=== PATIENT | female | born 1955 | race Caucasian/White ===

== ENCOUNTER 2016-12-13 08:18 | Inpatient (IN) | payer OTHER ==
[2016-11-06 10:18] VITALS: BMI 31.0
[2016-11-06 10:34] VITALS: BMI 31.0
--- NOTE | 2016-11-06 11:00 | PAT Medication Instructions ---
Service Date Nov 06, 2016. Current Home Medication List Albuterol (Ventolin Hfa), 2 INHA INH QID PRN for WHEEZING Aspirin (Aspirin Ec), 162 MG PO QAM Clopidogrel (Plavix), 75 MG PO QPM Docusate Sodium (Docusate Sodium), 1 CAP PO PRN Esomeprazole Magnesium (Nexium), 20 MG PO QAM Estradiol Vaginal (Vagifem), 1 SUPP PV 2XWK Ezetimibe (Zetia), 10 MG PO QPM Fluticasone Propionate (Flovent Hfa), 2 PUFFS INH BID Gabapentin (Neurontin), 300 MG PO HS Ibuprofen Tab (Motrin), 1 TAB PO TID PRN for PRN Levothyroxine Sodium (Synthroid), 1 TAB PO QAM Metoprolol Tartrate (Lopressor) (Lopressor), 25 MG PO BID Nitroglycerin (Nitrostat), 0.4 MG UT PRN Rosuvastatin Calcium (Crestor), 1 TAB PO QPM Tramadol (Ultram), 1 TAB PO Q6 PRN for PRN for pain. Medication Instructions For Your Scheduled Surgery - Check with surgeon/gis professor for instructions: Aspirin (Aspirin Ec), 162 MG PO QAM Clopidogrel (Plavix), 75 MG PO QPM - Check with surgeon for instructions: Ibuprofen Tab (Motrin), 1 TAB PO TID PRN for PRN - Hold the following medications 2 weeks prior to surgery: Estradiol Vaginal (Vagifem), 1 SUPP PV 2XWK (patient will hold week of surgery per PCP) - Hold the following medications the morning of surgery: Docusate Sodium (Docusate Sodium), 1 CAP PO PRN - Take the following medications the morning of surgery with a sip of water: Nitroglycerin (Nitrostat), 0.4 MG UT PRN Metoprolol Tartrate (Lopressor) (Lopressor), 25 MG PO BID Levothyroxine Sodium (Synthroid), 1 TAB PO QAM Fluticasone Propionate (Flovent Hfa), 2 PUFFS INH BID Esomeprazole Magnesium (Nexium), 20 MG PO QAM Albuterol (Ventolin Hfa), 2 INHA INH QID PRN for WHEEZING Tramadol (Ultram), 1 TAB PO Q6 PRN for PRN for pain. (okay to take up to 4 hours prior to surgery if needed) - Take the following medications as scheduled the night before surgery: Rosuvastatin Calcium (Crestor), 1 TAB PO QPM Nitroglycerin (Nitrostat), 0.4 MG UT PRN Metoprolol Tartrate (Lopressor) (Lopressor), 25 MG PO BID Gabapentin (Neurontin), 300 MG PO HS Fluticasone Propionate (Flovent Hfa), 2 PUFFS INH BID Ezetimibe (Zetia), 10 MG PO QPM Docusate Sodium (Docusate Sodium), 1 CAP PO PRN Albuterol (Ventolin Hfa), 2 INHA INH QID PRN for WHEEZING Tramadol (Ultram), 1 TAB PO Q6 PRN for PRN for pain. If you have any questions please call us at [phone] (Sara Joseph PA-C) or [phone] or [phone]
[2016-11-06 11:25] LABS: BASO % 1.2 %; BASO ABS # 0.07 K/uL (0-0.2); COMPLETE YES; EOS % 7.9 %; HEMATOCRIT 39.4 % (37-47); IG% 0.3 %; LYMPH % 32.5 %; LYMPH ABS # 1.89 K/uL (1.2-3.4); MEAN CELL VOLUME 90.4 fL (80-100); MEAN CORPUSCULAR HEMOGLOBIN 29.4 pg (25-34); MEAN CORPUSCULAR HGB CONC 32.5 g/dl (32-36); MONO % 9.1 %; PLATELET COUNT 266 K/uL (130-400); RED BLOOD COUNT 4.36 M/uL (4.2-5.4); WHITE BLOOD COUNT 5.81 K/uL (4.8-10.8)
[2016-11-06 11:28] LABS: URINE APPEARANCE CLEAR (CLEAR); URINE BILIRUBIN NEG (NEG); URINE COLOR YELLOW; URINE EPITHELIAL CELL AUTO 0-5 /lpf (0-5); URINE NITRITE NEG (NEG); URINE PH 6.5 (4.5-7.5); URINE SPECIFIC GRAVITY 1.002 (1.000-1.030); UROBILINOGEN NEG (NEG)
--- NOTE | 2016-11-06 11:29 | DIAGNOSTIC IMAGING REPORT ---
CHEST PREADMISSION(PA/LAT) CLINICAL HISTORY: PAT preoperative evaluation COMPARISON STUDY: No previous studies for comparison. FINDINGS: The bones soft tissues and hemidiaphragms are normal. The cardiomediastinal silhouette is normal. The lungs are clear. The pulmonary vasculature is normal. Prior median sternotomy. IMPRESSION: Negative chest. Electronically signed by: Danny Tellez M.D. 11/06/2016 11:28 AM Dictated Date/Time: 11/06/2016 11:28 AM
[2016-11-06 11:32] LABS: MANUAL MICROSCOPIC REQUIRED? NO; REVIEW REQ? NO
[2016-11-06 11:43] LABS: BUN/CREATININE RATIO 17.4 (10-20); CALCIUM 8.9 mg/dl (8.5-10.1); POTASSIUM 5.2 mmol/L (3.5-5.1)
[~2016-12-13] VITALS: Ht 157.5 cm; Wt 77.8 kg
[2016-12-13] VITALS (8 sets, daily range): BP systolic 95–118; BP diastolic 60–80; PULSE 62–97; TEMP 34.6–36.6; O2SAT 98–100; Ht 157.5 cm; Wt 77.8 kg
[~2016-12-13 08:18] MED LIST: ALBUAER2 INH; ASPI81TA28 PO; CEFAZOLIN 2000 MG/60 ML D5W IV SCH; CELEBREX-ALLERGY NOTED TO ORDERED MEDICATION SCH; CLOP1TAB15 PO; CeleBREX 200 MG CAP PO SCH; DOCU100C31 PO; ESOM20CA PO; ESTR10TA PV; EZET10TA63 PO; FENTANYL CITRATE INJ 50 MCG/1 ML 2 ML VIAL ONE; FLVHFA44 INH; GABA-113 PO; IBUP-1427 PO; LACTATED RINGER'S 1000ML 1,000 ML IV SCH; LEVO75TA PO; LIDOCAINE HCL 2% 2 ML VIAL (20MG/ML) ONE; METO25TA56 PO; MIDAZOLAM HCL 1 MG/ML 2ML VIAL ONE; NITR0.4S UT; PREGABALIN 75 MG CAP PO SCH; PROPOFOL IV EMULSION 10 MG/ML 20 ML VIAL IV ONE; ROSU40TA PO; TRAM-10 PO
[2016-12-13] MEDS ORDERED: LACTATED RINGER'S 1000ML 1,000 ML IV PRN (10:58)
[2016-12-13] MEDS ORDERED: FENTANYL CITRATE INJ 50 MCG/1 ML 2 ML VIAL IV PRN (11:00)
[2016-12-13] MEDS ORDERED: ONDANSETRON INJ 2 MG/ML 2 ML VIAL IV PRN ×2 (11:00→13:45)
[2016-12-13] MEDS ORDERED: HYDROmorphone INJ 1 MG/ML SYR IV PRN (11:00)
[2016-12-13] MEDS ORDERED: HEPARIN SOD (PORCINE) 1000 UNIT/ML 10 ML VIAL ONE (11:28)
[2016-12-13] MEDS ORDERED: BUPIVACAINE/EPINEPHRINE 0.5% MPF 1:200,000 30 ML VIAL ONE (11:28)
[2016-12-13] MEDS ORDERED: BACITRACIN 50000 UNIT VIAL ONE (11:28)
[2016-12-13] MEDS ORDERED: THROMBIN 5000 UNITS KIT ONE (11:28)
[2016-12-13] MEDS ORDERED: THROMBIN FOR SOLN 20000 UNIT KIT ONE (11:28)
[2016-12-13] MEDS ORDERED: MIDAZOLAM HCL 1 MG/ML 2ML VIAL ONE (11:29)
[2016-12-13] MEDS ORDERED: FENTANYL CITRATE INJ 50 MCG/1 ML 2 ML VIAL ONE ×2 (11:29→12:14)
--- NOTE | 2016-12-13 11:41 | History and Physical ---
History & Physical Date Dec 13, 2016. Chief Complaint LBP and bilateral leg pain History of Present Illness The patient is a 61 year old female with complaints of above who has had chronic symptoms that have failed to improve with outpatient treatment including ESIs and PT. She was referred by Dr. Camara for surgical consideration due to progression of symptoms and limited quality of life. She has subjective numbness and tingling in BLEs. no elana weakness or incontinence. Her MRI shows spinal stenosis L3-S1 with xray findings of a lumbarized S1 and L5-S1 degen spondy gr I. She has a hx of CAD s/p CABG in 2014. cleared by cards to hold plavix and proceed. Past Medical/Surgical History CAD CABG 07/24 HTN asthma smoker GERD hyperlipidemia hypothyroidism lumbar DDD ACDF LBBB hysterectomy CTS paroxysmal ventricular tachycardia Additional History Hepatic Disease: No Endocrine Disorder: Yes Kidney Disease: No Hypertension: Yes Heart Disease: Yes Bleeding Tendencies: No Infectious Diseases: No Allergies Coded Allergies: Adhesives (Verified Allergy, Mild, HIVES, 12/13/16) Rofecoxib (Verified Allergy, Mild, RASH,NAUSEA AND VOMITING,CHEST PAIN, 12/13/16) Home Medications Scheduled Aspirin (Aspirin Ec), 162 MG PO QAM Clopidogrel (Plavix), 75 MG PO QPM Esomeprazole Magnesium (Nexium), 20 MG PO QAM Estradiol Vaginal (Vagifem), 1 SUPP PV 2XWK Ezetimibe (Zetia), 10 MG PO QPM Fluticasone Propionate (Flovent Hfa), 2 PUFFS INH BID Gabapentin (Neurontin), 300 MG PO HS Levothyroxine Sodium (Synthroid), 1 TAB PO QAM Metoprolol Tartrate (Lopressor) (Lopressor), 25 MG PO BID Nitroglycerin (Nitrostat), 0.4 MG UT PRN Rosuvastatin Calcium (Crestor), 1 TAB PO QPM Scheduled PRN Albuterol (Ventolin Hfa), 2 INHA INH QID PRN for WHEEZING Ibuprofen Tab (Motrin), 1 TAB PO TID PRN for PRN Tramadol (Ultram), 1 TAB PO Q6 PRN for PRN for pain. Physical Examination Skin: warm/dry Eyes: normal inspection ENT: normal ENT inspection Head: normocephalic, atraumatic Neck: supple Respiratory/Chest: lungs clear, no respiratory distress Cardiovascular: regular rate, rhythm Back: normal inspection Extremities: normal inspection, normal range of motion Neurologic/Psych: no motor/sensory deficits, alert, normal reflexes, oriented x 3 Diagnosis L3-S1 stenosis/degen spondy/DDD Plan of Treatment L3-S1 decompression/PSF, possible TLIF L5-S1
[2016-12-13] MEDS ORDERED: HYDROmorphone INJ 2 MG/ML SYR/VIAL ONE ×2 (12:14→13:46)
[2016-12-13] MEDS ORDERED: ALBUMIN HUMAN 5% 12.5 GM/250 ML VIAL IV ONE (12:59)
[2016-12-13] MEDS ORDERED: FLOSEAL HEMOSTATIC MATRIX 10ML TOP ONE (13:30)
[2016-12-13] MEDS ORDERED: SODIUM CHLORIDE 0.9% 1000ML 1,000 ML IV SCH (13:41)
--- NOTE | 2016-12-13 13:41 | [facility] Post Operative Brief Note ---
Immediate Operative Summary Operative Date Dec 13, 2016. Pre-Operative Diagnosis L3-S1 stenosis, degenerative spondylosis, and degenerative disc disease Post-Operative Diagnosis same as preop Procedure(s) Performed L3-S1 Decompression, Posterior Instrumented Fusion, application of Magellan Arteriocyte with iliac crest bone marrow aspirate, use of bone morphogenetic protein; L1-S1 transforaminal lumbar interbody fusion with application of interbody cage Surgeon Dr. Miguel Ángel Perez Coordinate Measuring Machine Technician Surgeon(s) Grey [place] PA-C Estimated Blood Loss 400 ML Findings dict Specimens none
[2016-12-13] MEDS ORDERED: ROCURONIUM BROMIDE 10 MG/ML 5 ML VIAL ONE (13:42)
[2016-12-13] MEDS ORDERED: LIDOCAINE HCL 2% 2 ML VIAL (20MG/ML) ONE (13:42)
[2016-12-13] MEDS ORDERED: DEXAMETHASONE SOD INJ 4 MG/ML VIAL ONE (13:42)
[2016-12-13] MEDS ORDERED: PROPOFOL IV EMULSION 10 MG/ML 20 ML VIAL IV ONE (13:42)
[2016-12-13] MEDS ORDERED: EpHEDrine SULFATE 50MG/5ML SYR ONE (13:42)
[2016-12-13] MEDS ORDERED: ONDANSETRON INJ 2 MG/ML 2 ML VIAL ONE ×2 (13:42→13:47)
[2016-12-13] MEDS ORDERED: PHENYLEPHRINE 100MCG/ML 5ML SYR ONE (13:42)
[2016-12-13] MEDS ORDERED: PROMETHAZINE HCL INJ 12.5 MG in SODIUM CHLORIDE 0.9% 50ML 50 ML IV PRN (13:45)
[2016-12-13] MEDS ORDERED: METOCLOPRAMIDE HCL INJ 5 MG/ML 2 ML VIAL IV PRN (13:45)
[2016-12-13] MEDS ORDERED: MAGNESIUM HYDROXIDE SUSP 30 ML UDC PO PRN (13:45)
[2016-12-13] MEDS ORDERED: NALOXONE HCL 0.4 MG/1 ML VIAL/CARP IV PRN ×2 (13:45)
[2016-12-13] MEDS ORDERED: NITROGLYCERIN 0.4 MG SL PER TAB CHARGE UT PRN (13:45)
[2016-12-13] MEDS ORDERED: hydrOXYzine HCL 25 MG TAB PO PRN (13:45)
[2016-12-13] MEDS ORDERED: ALBUTEROL HFA 8 GM INHALER INH PRN (13:45)
[2016-12-13] MEDS ORDERED: MoRPHine SULFATE 1 MG/ML 50 ML PCA CASS IV PRN (13:45)
[2016-12-13] MEDS ORDERED: ALUMINUM/MAGNESIUM SUSP 30 ML UDC PO PRN (13:45)
[2016-12-13] MEDS ORDERED: BISACODYL 10 MG SUPP PR PRN (13:45)
[2016-12-13] MEDS ORDERED: SOD PHOSPHATE/SOD BIPHOSPHATE ENEMA 132 ML BTL PR PRN (13:45)
[2016-12-13] MEDS ORDERED: LORAZEPAM INJ 0.5 MG in SYRINGE 0.75 ML IV PRN (13:45)
[2016-12-13] MEDS ORDERED: ACETAMINOPHEN IV 100 ML IV PRN (13:45)
[2016-12-13] MEDS ORDERED: LORAZEPAM 0.5 MG TAB PO PRN (13:45)
[2016-12-13] MEDS ORDERED: FAMOTIDINE 20 MG TAB PO PRN (13:45)
[2016-12-13] MEDS ORDERED: GLYCOPYRROLATE INJ 0.2 MG/ML VIAL ONE (13:47)
[2016-12-13] MEDS ORDERED: NEOSTIGMINE METHYLSULFATE 1 MG/ML 10ML VIAL ONE (13:47)
--- NOTE | 2016-12-13 13:52 | DIAGNOSTIC IMAGING REPORT ---
LUMBAR SPINE 2 OR 3 VIEW CLINICAL HISTORY: L3-S1 decompression. COMPARISON STUDY: No previous studies for comparison. Fluoroscopy time: 8 seconds. FINDINGS: 2 fluoroscopic images demonstrate an L5-S1 discectomy with interbody spacer placement. There are bilateral pedicle screws at the L3, L4, L5 and S1 levels with interconnecting rods. Hardware is intact. Posterior decompression is noted. IMPRESSION: Fluoroscopic images demonstrating an L5-S1 discectomy and L3-S1 bilateral pedicle screw fusion. Electronically signed by: Joseph Ramirez M.D. 12/13/2016 1:49 PM Dictated Date/Time: 12/13/2016 1:47 PM
[2016-12-13] MEDS ORDERED: MoRPHine SULFATE 1 MG/ML 50 ML PCA CASS ONE (14:07)
--- NOTE | 2016-12-13 15:10 | Anesthesiology Progress Note ---
Anesthesia Post Op Note Date & Time Dec 13, 2016 at 15:10 Vital Signs Pain Intensity: 5 Vital Signs Past 12 Hours Date Time Temp Pulse Resp B/P Pulse Ox O2 Delivery O2 Flow Rate FiO2 12/13/16 14:45 83 16 115/75 100 Nasal Cannula 4 12/13/16 14:35 83 16 137/77 98 Nasal Cannula 4 12/13/16 14:25 77 16 107/67 100 Nasal Cannula 4 12/13/16 14:15 85 16 133/78 100 Mask 10 12/13/16 14:05 85 16 130/82 100 Mask 10 12/13/16 13:55 36.3 83 14 140/90 96 Mask 10 12/13/16 09:06 36.6 62 18 116/70 98 Room Air Notes Mental Status: alert / awake / arousable, participated in evaluation Pt Amnestic to Procedure: Yes Nausea / Vomiting: adequately controlled Pain: adequately controlled Airway Patency, RR, SpO2: stable & adequate BP & HR: stable & adequate Hydration State: stable & adequate Anesthetic Complications: no major complications apparent
[2016-12-13] MEDS: SODIUM CHLORIDE 0.9% 1000ML 1,000 ML IV SCH (15:30)
--- NOTE | 2016-12-13 15:58 | Medical Consult ---
Consultation Date of Consultation: Dec 13, 2016. Attending Physician: Miguel Ángel Perez M.D. Reason for Consultation: Medical management History of Present Illness Patient is a pleasant 61 y/o female, s/p L3-S1 Decompression, Posterior Instrumented Fusion, application of Magellan Arteriocyte with iliac crest bone marrow aspirate, use of bone morphogenetic protein; L1-S1 transforaminal lumbar interbody fusion with application of interbody cage L3-S1 stenosis, degenerative spondylosis, and degenerative disc disease done by Dr. Perez on 12/13. Patient states she is feeling well. Per family, no complications w/ procedure. No BM/flatus post op. Pain is well controlled at this time. + dizziness. Patient denies any fever, chills, sweats, lightheadedness, vision changes, CP, palpitations, edema, SOB, wheezing, cough, abdominal pain, nausea, vomiting, diarrhea, urinary symptoms, melena, numbness/tingling, weakness, muscle/joint pain, anxiety/depression, active bleeding, or new skin discoloration/changes. Past Medical/Surgical History Medical hx: 1. CAD 2. Hypercholesterolemia 3. Hypothyroidism 4. GERD 5. Asthma Surgical hx: 1. s/p CABG in 2014: Family History 1. Colon cancer 2. Breast cancer 3. Ovarian cancer 4. Heart disease Social History Smoking Status: Never Smoker Marital Status: Housing Status: lives with family Allergies Coded Allergies: Adhesives (Verified Allergy, Mild, HIVES, 12/13/16) Rofecoxib (Verified Allergy, Mild, RASH,NAUSEA AND VOMITING,CHEST PAIN, 12/13/16) Home Medications Reported Home Medications Medications Dose Route/Sig Max Daily Dose Days Date Category Aspirin Ec (Aspirin) 81 Mg Tab 162 Mg PO QAM 11/06/16 Reported Flovent Hfa (Fluticasone Propionate) 120 Puffs/5280 Mcg Aero 2 Puffs INH BID 30 11/06/16 Reported Nexium (Esomeprazole Magnesium) 20 Mg Capcr 20 Mg PO QAM 11/06/16 Reported Zetia (Ezetimibe) 10 Mg Tab 10 Mg PO QPM 11/06/16 Reported Plavix (Clopidogrel Bisulfate) 75 Mg Tab 75 Mg PO QPM 11/06/16 Reported Lopressor (Metoprolol Tartrate) 25 Mg Tab 25 Mg PO BID 11/06/16 Reported Neurontin (Gabapentin) 300 Mg Cap 300 Mg PO HS 11/06/16 Reported Motrin (Ibuprofen) 600 Mg Tab 1 Tab PO TID PRN 30 07/13/15 Reported Vagifem (Estradiol Vaginal) 10 Mcg Tab 1 Supp PV 2XWK 28 07/13/15 Reported Ventolin Hfa (Albuterol) Aers 2 Inha INH QID PRN 07/13/15 Reported Ultram (Tramadol HCl) 50 Mg Tab 1 Tab PO Q6 PRN 30 07/13/15 Reported Synthroid (Levothyroxine Sodium) 75 Mcg Tab 1 Tab PO QAM 30 07/13/15 Reported Crestor (Rosuvastatin Calcium) 40 Mg Tab 1 Tab PO QPM 30 07/13/15 Reported Nitrostat (Nitroglycerin) 0.4 Mg Sub 0.4 Mg UT PRN 07/13/15 Reported Current Inpatient Medications Current Inpatient Medications Medications (Trade) Dose Ordered Sig/Andre Route Start Time Stop Time Status Last Admin Dose Admin Cefazolin Sodium (Ancef 2000mg/60 ml D5W) 60 ml @ 100 mls/hr PREOP IV 12/13/16 06:00 12/13/16 18:00 Pregabalin (Lyrica Cap) 75 mg PREOP PO 12/13/16 06:00 12/13/16 18:00 12/13/16 09:37 75 MG Fentanyl Citrate (Fentanyl Inj) 25 mcg Q5M PRN IV 12/13/16 11:00 12/13/16 16:00 Hydromorphone HCl (Dilaudid Inj) 0.5 mg Q5M PRN IV 12/13/16 11:00 12/13/16 16:00 Ondansetron HCl 4 mg 4 mg ONE PRN IV 12/13/16 11:00 12/13/16 16:00 Lactated Ringer's (Lr 1000ml) 1,000 ml @ 120 mls/hr Q8H20M PRN IV 12/13/16 10:58 12/13/16 16:45 Albuterol (Ventolin Hfa Inhaler) 2 puffs QID PRN INH 12/13/16 13:45 01/12/17 13:44 Aspirin (Ecotrin Tab) 162 mg QAM PO 12/14/16 09:00 01/13/17 08:59 EZETIMIBE (Zetia Tab) 10 mg QPM PO 12/13/16 21:00 01/12/17 20:59 Fluticasone Propionate (Flovent Hfa 44MCG Inhaler) 2 puffs BID INH 12/13/16 21:00 01/12/17 20:59 Gabapentin (Neurontin Cap) 300 mg HS PO 12/13/16 21:00 01/12/17 20:59 Levothyroxine Sodium (Synthroid Tab) 75 mcg DAILYBB PO 12/14/16 06:00 01/13/17 05:59 Metoprolol Tartrate (Lopressor Tab) 25 mg BID PO 12/13/16 21:00 01/12/17 20:59 Nitroglycerin (Nitrostat Tab) 0.4 mg UD PRN UT 12/13/16 13:45 01/12/17 13:44 Rosuvastatin Calcium (Crestor Tab) 40 mg QPM PO 12/13/16 21:00 01/12/17 20:59 Pantoprazole Sodium 40 mg 40 mg QAM PO 12/14/16 09:00 01/13/17 08:59 Dexamethasone Sodium Phosphate 6 mg/Syringe 1.5 ml @ 1 mls/min Q8H IV 12/13/16 22:00 12/14/16 14:02 Promethazine HCl/ Sodium Chloride (Phenergan Inj/ Nss 50ml) 50.5 ml @ 202 mls/hr Q6H PRN IV 12/13/16 13:45 01/12/17 13:44 Ondansetron HCl (Zofran Inj) 4 mg Q6H PRN IV 12/13/16 13:45 01/12/17 13:44 Metoclopramide HCl (Reglan Inj) 10 mg Q6H PRN IV 12/13/16 13:45 01/12/17 13:44 Lorazepam 0.5 mg 0.5 mg Q8H PRN PO 12/13/16 13:45 01/12/17 13:44 Lorazepam 0.5 mg/ Syringe 1 ml @ 1 mls/min Q8H PRN IV 12/13/16 13:45 01/12/17 13:44 Sodium Chloride (Nss 1000ml) 1,000 ml @ 75 mls/hr [id number] IV 12/13/16 13:41 01/12/17 13:40 Polyethylene (Miralax Powder Packet) 17 gm Q6 PO 12/15/16 06:00 01/14/17 05:59 Bisacodyl (Dulcolax Supp) 10 mg DAILY PRN MT 12/13/16 13:45 01/12/17 13:44 Magnesium Hydroxide (Milk Of Magnesia Susp) 30 ml DAILY PRN PO 12/13/16 13:45 01/12/17 13:44 Hydromorphone HCl (Dilaudid Inj) 0.5 mg Q3H PRN IV 12/14/16 06:00 12/28/16 05:59 Oxycodone HCl 5-10mg prn moderate to sev... Q4H PRN PO 12/14/16 06:00 12/28/16 05:59 Cefazolin Sodium 2000 mg/Dextrose 60 ml @ 100 mls/hr Q8H IV 12/13/16 18:00 12/14/16 02:35 Acetaminophen (Ofirmev Iv) 100 ml @ 400 mls/hr Q8H PRN IV 12/13/16 13:45 01/12/17 13:44 Naloxone HCl (Narcan Inj) 0.1 mg Q5M PRN IV 12/13/16 13:45 01/12/17 13:44 Senna/Docusate Sodium (Senokot S Tab) 2 tab HS PO 12/13/16 21:00 01/12/17 20:59 Sodium Biphosphate/ Sodium Phosphate (Fleet Enema) 132 ml ONE PRN MT 12/13/16 13:45 01/12/17 13:44 Hydroxyzine HCl (Vistaril Tab) 25 mg Q8H PRN PO 12/13/16 13:45 01/12/17 13:44 Al Hydroxide/Mg Hydroxide (Maalox Susp) 30 ml Q6H PRN PO 12/13/16 13:45 01/12/17 13:44 Famotidine (Pepcid Tab) 20 mg Q12 PRN PO 12/13/16 13:45 01/12/17 13:44 Diphenhydramine HCl (Benadryl Cap) 25 mg Q6H PRN PO 12/13/16 13:45 01/12/17 13:44 Miscellaneous Information (Discontinue LABORER CONSTRUCTION OR LEAK GANG) 1 ea TODAY@0600 N/A 4/7/17 06:00 12/14/16 06:01 Naloxone HCl (Narcan Inj) 0.1 mg Q5M PRN IV 12/13/16 13:45 12/14/16 06:00 Morphine Sulfate 50 mg 50 mg PRN PRN IV 12/13/16 13:45 12/14/16 06:00 Sodium Chloride (Nss 1000ml) 1,000 ml @ 15 mls/hr Q24H IV 12/13/16 13:41 12/14/16 06:00 Hydromorphone HCl (Dilaudid Inj) 1 mg Q3H PRN IV 12/14/16 06:00 12/28/16 05:59 Physical Exam Date Time Temp Pulse Resp B/P Pulse Ox O2 Delivery O2 Flow Rate FiO2 12/13/16 15:05 36.2 79 16 128/71 100 Nasal Cannula 4 12/13/16 14:55 36.2 81 16 113/73 99 Nasal Cannula 4 12/13/16 14:45 83 16 115/75 100 Nasal Cannula 4 12/13/16 14:35 83 16 137/77 98 Nasal Cannula 4 12/13/16 14:25 77 16 107/67 100 Nasal Cannula 4 12/13/16 14:15 85 16 133/78 100 Mask 10 12/13/16 14:05 85 16 130/82 100 Mask 10 12/13/16 13:55 36.3 83 14 140/90 96 Mask 10 12/13/16 09:06 36.6 62 18 116/70 98 Room Air General Appearance: no apparent distress Head: normocephalic, atraumatic Eyes: normal inspection, PERRL ENT: hearing grossly normal Neck: supple Respiratory/Chest: lungs clear, no respiratory distress, no accessory muscle use Cardiovascular: regular rate, rhythm Abdomen/GI: normal bowel sounds, non tender, soft Extremities/Musculoskelatal: no calf tenderness, no pedal edema, + pertinent finding (SCDs on ) Neurologic/Psych: alert, + pertinent finding (drowsy ) Skin: normal color, warm/dry, no rash Laboratory Results Last 24 Hours Test 12/13/16 08:54 Potassium Level 4.1 mmol/L Assessment & Plan Patient is a pleasant 61 y/o female, s/p L3-S1 Decompression, Posterior Instrumented Fusion, application of Magellan Arteriocyte with iliac crest bone marrow aspirate, use of bone morphogenetic protein; L1-S1 transforaminal lumbar interbody fusion with application of interbody cage L3-S1 stenosis, degenerative spondylosis, and degenerative disc disease done by Dr. Perez on 12/13. - DVT prophylaxis, pain management, and PT/OT per primary team - Follow CBC and PRP CAD s/p CABG in 2015: - Continue Metoprolol 25 mg BID and Plavix 75 mg daily - Follows sondra/ Danny Koroma PA-C Hypercholesterolemia: Continue Zetia 10 daily and Crestor 40 mg HS Hypothyroidism: Continue Synthroid 75 mcg daily GERD: Protonix Asthma: - Continue Ventolin PRN and Flovent BID - O2 supplement, wean as tolerated--> Does NOT wear O2 supplement at home Code Status: LEVEL I, FULL PA Physician Supervision Note: I interviewed and examined the patient. Discussed with Catherine ONTIVEROS and agree with findings and plan as documented in the note. Any exceptions or clarifications are listed here: None This pt is doing well, pain in good control vitals stable car is reg, lungs clear continue B ti and restart plavix if surgery comfortable with hemostasis Documented By: Bertrand Witt Dispo: Discharge as per primary team Thank you for this consultation. We will continue to follow throughout hospital stay.
[2016-12-13] MEDS: CEFAZOLIN IV 2,000 MG in DEXTROSE 5% 50ML 50 ML IV SCH (18:04)
[2016-12-13] MEDS: METOPROLOL TARTRATE 25 MG TAB PO SCH (21:00)
[2016-12-13] MEDS: DOCUSATE SODIUM/SENNA 50/8.6MG TAB PO SCH (21:00)
[2016-12-13] MEDS: ROSUVASTATIN CALCIUM 20 MG TAB PO SCH (21:16)
[2016-12-13] MEDS: EZETIMIBE 10MG TAB PO SCH (21:17)
[2016-12-13] MEDS: GABAPENTIN 300 MG CAP PO SCH (21:18)
[2016-12-13] MEDS: DEXAMETHASONE INJ 6 MG in SYRINGE 0 ML IV SCH (21:19)
[2016-12-13] MEDS: FLUTICASONE PROP HFA INH 44 MCG INHALER INH SCH (21:19)
[2016-12-14] VITALS (7 sets, daily range): BP systolic 95–124; BP diastolic 56–77; PULSE 84–99; TEMP 36.5–36.8; O2SAT 92–97
[2016-12-14] MEDS: SODIUM CHLORIDE 0.9% 1000ML 1,000 ML IV SCH (02:18)
[2016-12-14] MEDS: CEFAZOLIN IV 2,000 MG in DEXTROSE 5% 50ML 50 ML IV SCH (02:20)
[2016-12-14] MEDS: DEXAMETHASONE INJ 6 MG in SYRINGE 0 ML IV SCH ×2 (05:58→14:31)
[2016-12-14] MEDS: LEVOTHYROXINE 75 MCG TAB PO SCH (05:58)
[2016-12-14] MEDS ORDERED: DC PCA SCH (06:00)
[2016-12-14] MEDS ORDERED: HYDROmorphone INJ 0.5 MG/0.5 ML SYR IV PRN (06:00)
[2016-12-14] MEDS ORDERED: HYDROmorphone INJ 1 MG/ML SYR IV PRN (06:00)
[2016-12-14] MEDS ORDERED: NURSING VERBAL MED ORDER ONE (06:30)
[2016-12-14 06:48] LABS: COMPLETE YES; HEMATOCRIT 31.7 % (37-47); IG% 0.2 %; LYMPH % 6.9 %; LYMPH ABS # 0.75 K/uL (1.2-3.4); MEAN CELL VOLUME 90.3 fL (80-100); MEAN CORPUSCULAR HEMOGLOBIN 29.1 pg (25-34); MEAN CORPUSCULAR HGB CONC 32.2 g/dl (32-36); MEAN PLATELET VOLUME 10.1 fL (7.4-10.4); MONO % 5.5 %; NEUT % 87.4 %; PLATELET COUNT 225 K/uL (130-400); RED BLOOD COUNT 3.51 M/uL (4.2-5.4); WHITE BLOOD COUNT 10.83 K/uL (4.8-10.8)
[2016-12-14 07:23] LABS: BUN/CREATININE RATIO 13.3 (10-20); CALCIUM 8.1 mg/dl (8.5-10.1); POTASSIUM 4.5 mmol/L (3.5-5.1)
--- NOTE | 2016-12-14 08:30 | Anesthesiology Progress Note ---
Anesthesia Post Op Note Date & Time Dec 14, 2016 at 08:29 Vital Signs Pain Intensity: 0.0 Vital Signs Past 12 Hours Date Time Temp Pulse Resp B/P Pulse Ox O2 Delivery O2 Flow Rate FiO2 12/14/16 07:15 Room Air 12/14/16 07:10 36.6 95 18 95/61 92 Room Air 12/14/16 03:49 36.7 99 18 95/56 97 Nasal Cannula 2.0 12/13/16 22:55 36.5 89 18 108/72 100 Nasal Cannula 4.0 12/13/16 21:12 97 95/60 Notes Mental Status: alert / awake / arousable, participated in evaluation Pt Amnestic to Procedure: Yes Nausea / Vomiting: adequately controlled Pain: adequately controlled Airway Patency, RR, SpO2: stable & adequate BP & HR: stable & adequate Hydration State: stable & adequate Anesthetic Complications: no major complications apparent
--- NOTE | 2016-12-14 08:58 | Orthopedic Progress Note ---
Orthopedic Progress Note Date of Service Dec 14, 2016. Subjective Post OP Day: 1 Reports: feeling well, using GROUP THERAPIST, Denies: SOB, calf pain, chest pain, complaints , light headedness, nausea / vomiting, pain controlled w PO medications Objective calves soft nontender, N/V intact, dressing C/D/I, A&O x3, hemovac drainage Date Time Temp Pulse Resp B/P Pulse Ox O2 Delivery O2 Flow Rate FiO2 12/14/16 07:15 Room Air 12/14/16 07:10 36.6 95 18 95/61 92 Room Air 12/14/16 03:49 36.7 99 18 95/56 97 Nasal Cannula 2.0 12/13/16 22:55 36.5 89 18 108/72 100 Nasal Cannula 4.0 12/13/16 21:12 97 95/60 12/13/16 19:20 Nasal Cannula 4.0 12/13/16 18:30 36.4 84 16 114/80 100 Nasal Cannula 4.0 12/13/16 17:46 36.3 12/13/16 17:30 34.6 82 14 118/76 100 Nasal Cannula 4.0 12/13/16 16:30 34.8 80 14 106/72 99 Nasal Cannula 4.0 12/13/16 16:00 36.4 80 14 103/70 100 Nasal Cannula 4.0 12/13/16 15:30 Nasal Cannula 4.0 12/13/16 15:30 100 Nasal Cannula 4.0 12/13/16 15:05 36.2 79 16 128/71 100 Nasal Cannula 4 12/13/16 14:55 36.2 81 16 113/73 99 Nasal Cannula 4 12/13/16 14:45 83 16 115/75 100 Nasal Cannula 4 12/13/16 14:35 83 16 137/77 98 Nasal Cannula 4 12/13/16 14:25 77 16 107/67 100 Nasal Cannula 4 12/13/16 14:15 85 16 133/78 100 Mask 10 12/13/16 14:05 85 16 130/82 100 Mask 10 12/13/16 13:55 36.3 83 14 140/90 96 Mask 10 12/13/16 09:06 36.6 62 18 116/70 98 Room Air Laboratory Results 24 Hours: Test 12/14/16 06:35 White Blood Count 10.83 K/uL Red Blood Count 3.51 M/uL Hemoglobin 10.2 g/dL Hematocrit 31.7 % Mean Corpuscular Volume 90.3 fL Mean Corpuscular Hemoglobin 29.1 pg Mean Corpuscular Hemoglobin Concent 32.2 g/dl Platelet Count 225 K/uL Mean Platelet Volume 10.1 fL Neutrophils (%) (Auto) 87.4 % Lymphocytes (%) (Auto) 6.9 % Monocytes (%) (Auto) 5.5 % Eosinophils (%) (Auto) 0.0 % Basophils (%) (Auto) 0.0 % Neutrophils # (Auto) 9.46 K/uL Lymphocytes # (Auto) 0.75 K/uL Monocytes # (Auto) 0.60 K/uL Eosinophils # (Auto) 0.00 K/uL Basophils # (Auto) 0.00 K/uL Assessment & Plan Assessment: stable, start PT, SCds, hold plavix Discharge Planning Discharge Planning: home with home health
[2016-12-14] MEDS: METOPROLOL TARTRATE 25 MG TAB PO SCH ×3 (09:00→20:58)
[2016-12-14] MEDS: FLUTICASONE PROP HFA INH 44 MCG INHALER INH SCH ×2 (09:07→20:54)
[2016-12-14] MEDS: PANTOprazole SOD 40 MG TAB PO SCH (09:08)
[2016-12-14] MEDS: ASPIRIN 81 MG ECTAB PO SCH (09:09)
--- NOTE | 2016-12-14 10:35 | Progress Note ---
Subjective Date of Service: Dec 14, 2016. Subjective Pt evaluation today including: conversation w/ patient, physical exam, lab review, conversation w/ cosmetic sales consultant, review of inpatient medication list Pain: no pain currently, just some pain with transfers PO Intake: adequate Voiding: no voiding problems patient doing well no chest pain or dyspnea, no vomiting, eating well pain is well controlled discussed metoprolol, she takes at 1200 and bedtime at home reports that her BP is always low, runs in 90's systolic her manager concrete really wants her to have metoprolol Review of Systems Constitutional: + fatigue, + weakness Musculoskeletal: + joint pain (back) All Other Systems: Reviewed and Negative Medications Current Inpatient Medications Medications (Trade) Dose Ordered Sig/Andre Route Start Time Stop Time Status Last Admin Dose Admin Albuterol (Ventolin Hfa Inhaler) 2 puffs QID PRN INH 12/13/16 13:45 01/12/17 13:44 Aspirin (Ecotrin Tab) 162 mg QAM PO 12/14/16 09:00 01/13/17 08:59 12/14/16 09:09 162 MG EZETIMIBE (Zetia Tab) 10 mg QPM PO 12/13/16 21:00 01/12/17 20:59 12/13/16 21:17 10 MG Fluticasone Propionate (Flovent Hfa 44MCG Inhaler) 2 puffs BID INH 12/13/16 21:00 01/12/17 20:59 12/14/16 09:07 2 PUFFS Gabapentin (Neurontin Cap) 300 mg HS PO 12/13/16 21:00 01/12/17 20:59 12/13/16 21:18 300 MG Levothyroxine Sodium (Synthroid Tab) 75 mcg DAILYBB PO 12/14/16 06:00 01/13/17 05:59 12/14/16 05:58 75 MCG Metoprolol Tartrate (Lopressor Tab) 25 mg BID PO 12/13/16 21:00 01/12/17 20:59 Nitroglycerin (Nitrostat Tab) 0.4 mg UD PRN [place] 12/13/16 13:45 01/12/17 13:44 Rosuvastatin Calcium (Crestor Tab) 40 mg QPM PO 12/13/16 21:00 01/12/17 20:59 12/13/16 21:16 40 MG Pantoprazole Sodium 40 mg 40 mg QAM PO 12/14/16 09:00 01/13/17 08:59 12/14/16 09:08 40 MG Dexamethasone Sodium Phosphate 6 mg/Syringe 1.5 ml @ 1 mls/min Q8H IV 12/13/16 22:00 12/14/16 14:02 12/14/16 05:58 1 MLS/MIN Promethazine HCl/ Sodium Chloride (Phenergan Inj/ Nss 50ml) 50.5 ml @ 202 mls/hr Q6H PRN IV 12/13/16 13:45 01/12/17 13:44 Ondansetron HCl (Zofran Inj) 4 mg Q6H PRN IV 12/13/16 13:45 01/12/17 13:44 12/13/16 18:22 4 MG Metoclopramide HCl (Reglan Inj) 10 mg Q6H PRN IV 12/13/16 13:45 01/12/17 13:44 Lorazepam 0.5 mg 0.5 mg Q8H PRN PO 12/13/16 13:45 01/12/17 13:44 Lorazepam/Syringe (Ativan Inj/ Syringe) 1 ml @ 1 mls/min Q8H PRN IV 12/13/16 13:45 01/12/17 13:44 Polyethylene (Miralax Powder Packet) 17 gm Q6 PO 12/15/16 06:00 01/14/17 05:59 Bisacodyl (Dulcolax Supp) 10 mg DAILY PRN [place] 12/13/16 13:45 01/12/17 13:44 Magnesium Hydroxide (Milk Of Magnesia Susp) 30 ml DAILY PRN PO 12/13/16 13:45 01/12/17 13:44 Hydromorphone HCl (Dilaudid Inj) 0.5 mg Q3H PRN IV 12/14/16 06:00 12/28/16 05:59 Oxycodone HCl 5-10mg prn moderate to sev... Q4H PRN PO 12/14/16 06:00 12/28/16 05:59 Acetaminophen (Ofirmev Iv) 100 ml @ 400 mls/hr Q8H PRN IV 12/13/16 13:45 01/12/17 13:44 Naloxone HCl (Narcan Inj) 0.1 mg Q5M PRN IV 12/13/16 13:45 01/12/17 13:44 Senna/Docusate Sodium (Senokot S Tab) 2 tab HS PO 12/13/16 21:00 01/12/17 20:59 Sodium Biphosphate/ Sodium Phosphate (Fleet Enema) 132 ml ONE PRN [place] 12/13/16 13:45 01/12/17 13:44 Hydroxyzine HCl (Vistaril Tab) 25 mg Q8H PRN PO 12/13/16 13:45 01/12/17 13:44 Al Hydroxide/Mg Hydroxide (Maalox Susp) 30 ml Q6H PRN PO 12/13/16 13:45 01/12/17 13:44 Famotidine (Pepcid Tab) 20 mg Q12 PRN PO 12/13/16 13:45 01/12/17 13:44 Diphenhydramine HCl (Benadryl Cap) 25 mg Q6H PRN PO 12/13/16 13:45 01/12/17 13:44 Hydromorphone HCl (Dilaudid Inj) 1 mg Q3H PRN IV 12/14/16 06:00 12/28/16 05:59 Objective Vital Signs Date Time Temp Pulse Resp B/P Pulse Ox O2 Delivery O2 Flow Rate FiO2 12/14/16 07:15 Room Air 12/14/16 07:10 36.6 95 18 95/61 92 Room Air 12/14/16 03:49 36.7 99 18 95/56 97 Nasal Cannula 2.0 12/13/16 22:55 36.5 89 18 108/72 100 Nasal Cannula 4.0 12/13/16 21:12 97 95/60 12/13/16 19:20 Nasal Cannula 4.0 12/13/16 18:30 36.4 84 16 114/80 100 Nasal Cannula 4.0 12/13/16 17:46 36.3 12/13/16 17:30 34.6 82 14 118/76 100 Nasal Cannula 4.0 12/13/16 16:30 34.8 80 14 106/72 99 Nasal Cannula 4.0 12/13/16 16:00 36.4 80 14 103/70 100 Nasal Cannula 4.0 12/13/16 15:30 Nasal Cannula 4.0 12/13/16 15:30 100 Nasal Cannula 4.0 12/13/16 15:05 36.2 79 16 128/71 100 Nasal Cannula 4 12/13/16 14:55 36.2 81 16 113/73 99 Nasal Cannula 4 12/13/16 14:45 83 16 115/75 100 Nasal Cannula 4 12/13/16 14:35 83 16 137/77 98 Nasal Cannula 4 12/13/16 14:25 77 16 107/67 100 Nasal Cannula 4 12/13/16 14:15 85 16 133/78 100 Mask 10 12/13/16 14:05 85 16 130/82 100 Mask 10 12/13/16 13:55 36.3 83 14 140/90 96 Mask 10 Physical Exam General Appearance: WD/WN, no apparent distress Eyes: normal inspection, EOMI, sclerae normal ENT: normal ENT inspection, hearing grossly normal, pharynx normal Neck: supple, no adenopathy, no JVD, trachea midline Respiratory/Chest: chest non-tender, lungs clear, normal breath sounds, no respiratory distress, no accessory muscle use Cardiovascular: regular rate, rhythm, no edema, no gallop, no JVD, no murmur Abdomen: normal bowel sounds, non tender, soft, no organomegaly Extremities: normal inspection, no pedal edema, no calf tenderness, pelvis stable, + pertinent finding (shake backboard notcher, decreased ROM) Neurologic/Psychiatric: instructor extension work II-XII nml as tested, no motor/sensory deficits, alert, normal mood/affect, oriented x 3 Skin: normal color, warm/dry, no rash Lymphatic: no adenopathy Laboratory Results Last 24 Hours Test 12/14/16 06:35 White Blood Count 10.83 K/uL Red Blood Count 3.51 M/uL Hemoglobin 10.2 g/dL Hematocrit 31.7 % Mean Corpuscular Volume 90.3 fL Mean Corpuscular Hemoglobin 29.1 pg Mean Corpuscular Hemoglobin Concent 32.2 g/dl Platelet Count 225 K/uL Mean Platelet Volume 10.1 fL Neutrophils (%) (Auto) 87.4 % Lymphocytes (%) (Auto) 6.9 % Monocytes (%) (Auto) 5.5 % Eosinophils (%) (Auto) 0.0 % Basophils (%) (Auto) 0.0 % Neutrophils # (Auto) 9.46 K/uL Lymphocytes # (Auto) 0.75 K/uL Monocytes # (Auto) 0.60 K/uL Eosinophils # (Auto) 0.00 K/uL Basophils # (Auto) 0.00 K/uL RDW Standard Deviation 46.4 fL RDW Coefficient of Variation 14.0 % Immature Granulocyte % (Auto) 0.2 % Immature Granulocyte # (Auto) 0.02 K/uL Sodium Level 144 mmol/L Potassium Level 4.5 mmol/L Chloride Level 112 mmol/L Carbon Dioxide Level 23 mmol/L Anion Gap 9.0 mmol/L Blood Urea Nitrogen 13 mg/dl Creatinine 1.00 mg/dl Est Creatinine Clear Calc Drug Dose 55.6 ml/min Estimated GFR () 69.4 Estimated GFR (Non- 59.9 BUN/Creatinine Ratio 13.3 Random Glucose 169 mg/dl Calcium Level 8.1 mg/dl Assessment and Plan Patient is a pleasant 61 y/o female, s/p L3-S1 Decompression, Posterior Instrumented Fusion, application of Magellan Arteriocyte with iliac crest bone marrow aspirate, use of bone morphogenetic protein; L1-S1 transforaminal lumbar interbody fusion with application of interbody cage L3-S1 stenosis, degenerative spondylosis, and degenerative disc disease done by Dr. Perez on 12/13. - POD #1, doing well, in chair, participating with therapy, off of NEON SIGN INSTALLER - DVT prophylaxis, pain management, and PT/OT per primary team - labs stable this AM CAD s/p CABG in 2015: - Continue Metoprolol 25 mg BID (takes at noon and bedtime) - surgery wants to hold Plavix today - Follows w/ Danny Koroma PA-C Hypercholesterolemia: Continue Zetia 10 daily and Crestor 40 mg HS Hypothyroidism: Continue Synthroid 75 mcg daily GERD: Protonix Asthma: - Continue Ventolin PRN and Flovent BID - O2 supplement, wean as tolerated--> Does NOT wear O2 supplement at home Code Status: LEVEL I, FULL
[2016-12-14] MEDS: OXYCODONE HCL IR 5 MG TAB (IMMEDIATE RELEASE) PO PRN ×2 (15:58→23:03)
--- NOTE | 2016-12-14 16:28 | OPERATIVE REPORT ---
DATE OF OPERATION: 12/13/2016 PREOPERATIVE DIAGNOSES: 1. Lumbar spinal stenosis L3-L4, L4-L5 and L5-S1. 2. L5-S1 degenerative spondylolisthesis -- grade 1. 3. Facet arthrosis. POSTOPERATIVE DIAGNOSES: Same. PROCEDURES: 1. L3, L4 and L5 laminectomies with bilateral medial facetectomies. 2. Segmental pedicle screw instrumentation -- bilateral L3, L4, L5 and S1 with K2M [place] pedicle screws. 3. Posterior lateral fusion L3-S1 -- bilateral with Infuse BMP on a collagen sponge, tricalcium phosphate, local bone, bone putty and bone marrow aspirate. 4. Left L5-S1 transforaminal lumbar interbody fusion with K2M titanium mesh interbody spacer, local bone, bone putty, and bone marrow aspirate. 5. Right iliac crest bone marrow aspiration and stem cell concentration, application of bone graft. SURGEON: Dr. Perez. BUSINESS EXCELLENCE LEADER: Grey Holloway PA-C. Please note he participated in all portions of the procedure and was critical for performance of the procedure, participated in positioning, prepping, draping, retraction and wound closure. ANESTHESIA: General endotracheal anesthesia. COMPLICATIONS: None. ESTIMATED BLOOD LOSS: 400 mL. PROCEDURE IN DETAIL: After identification of patient and operative level, she was brought to the OR where she underwent induction of general anesthesia. She was then positioned prone on Leno OR table. All bony prominences were well padded. Care was taken to avoid pressure on the periorbital area. Lumbosacral area was sterilely prepped and draped in usual fashion. Antibiotics were administered. Time-out was performed. Level was confirmed and skin incision was infiltrated with Marcaine, epinephrine and the incision was made from spinous process of L2 to the sacrum. Posterior exposure was accomplished at the tips of transverse processes from L3 to the sacral ala and Gelpi retractors were placed. The levels were confirmed with fluoroscopy and marked and the operative levels were then decompressed. I did central laminectomies of L3, L4 and L5 with removal of the medial facets using osteotomes at L3-L4, L4-L5 and L5-S1. I completed decompression with Kerrisons and palpated all nerve roots that were widely decompressed from L3-S1 bilaterally. I applied FloSeal for hemostasis. I then placed pedicle screws bilaterally at L3, L4, L5 and S1 with K2M [place] pedicle screws. I checked screw position with fluoroscopy. I then did a complete discectomy from the left side at L5-S1, prepared disc space with joana and curettes for subsequent cage introduction. I packed the cage with bone graft, bone putty and bone marrow aspirate. Bone marrow aspirate was obtained from the right iliac crest via separate stab incision with a Jamshidi needle and concentrated with the Arteriocyte system. This was applied to bone graft director of consulting services. I inserted the cage, it had good stability and restored disc height nicely and radiographs intraoperatively confirmed good cage placement. I then lowered the Lemuel frame and applied rods and end caps for final tightening as well as a crosslink from L3 to the sacrum. I irrigated with bacitracin solution and decorticated transverse processes and facets from L3 to the sacral ala with a high speed bur. I then packed the lateral gutters from L3-S1 with bone graft mixture as above including morcellized local bone, bone putty, bone marrow aspirate and Infuse BMP on a collagen sponge. I then confirmed hemostasis and closed in layered fashion over CECILY drain. All sponge and needle counts were correct at the end of the case. I attest to the content of the Intraoperative Record and any orders documented therein. Any exceptio ns are noted below.
[2016-12-14] MEDS: DOCUSATE SODIUM/SENNA 50/8.6MG TAB PO SCH (20:59)
[2016-12-14] MEDS: ROSUVASTATIN CALCIUM 20 MG TAB PO SCH (20:59)
[2016-12-14] MEDS: GABAPENTIN 300 MG CAP PO SCH (20:59)
[2016-12-14] MEDS: EZETIMIBE 10MG TAB PO SCH (21:00)
[2016-12-15] MEDS: LEVOTHYROXINE 75 MCG TAB PO SCH (05:39)
[2016-12-15] MEDS: POLYETHYLENE (MIRALAX) 17 GM PACK PO SCH ×3 (06:00→17:04)
[2016-12-15] MEDS: OXYCODONE HCL IR 5 MG TAB (IMMEDIATE RELEASE) PO PRN ×3 (07:38→21:07)
[2016-12-15] MEDS: ASPIRIN 81 MG ECTAB PO SCH (07:39)
[2016-12-15] MEDS: FLUTICASONE PROP HFA INH 44 MCG INHALER INH SCH ×2 (07:39→21:05)
[2016-12-15] MEDS: PANTOprazole SOD 40 MG TAB PO SCH (07:39)
[2016-12-15] MEDS: METOPROLOL TARTRATE 25 MG TAB PO SCH ×2 (07:40→21:06)
--- NOTE | 2016-12-15 11:19 | Discharge Instructions ---
Discharge Instructions Date of Service Dec 15, 2016. Admission Reason for Admission: Lumbar Spinal Stenosis Discharge Discharge Diagnosis / Problem: Spinal stenosis Discharge Goals Goal(s): Improve function Activity Recommendations Activity Limitations: as noted below Lifting Limitations: no more than 5 pounds Exercise/Sports Limitations: gradually increase as tolerated Shower/Bathe: tomorrow Driving or Machine Use: . Instructions / Follow-Up Instructions / Follow-Up ACTIVITY RECOMMENDATIONS: SELF CARE INSTRUCTIONS AFTER THORACIC/LUMBAR FUSIONS 1. You may walk to your tolerance. It is good exercise for your legs and back. Expect some back and intermittent leg aches and pains. 2. You may perform "counter-top" level activities (make a sandwich, steve with a project, etc.). 3. No bending or lifting of more than 10 pounds or back twisting of any nature (roll like a log when turning in bed). 4. You may ride in a car for 20-30 minutes at a time. No driving until after your first visit with your doctor. 5. Frequent changes of position and restricting sitting to 30 minutes at a time will help limit the amount of back spasms and stiffness you may experience. 6. You may discontinue the use of ambulatory aids (cane, crutches, etc.) once your strength and confidence allow. 7. You may principal clerk the shower and let water strike your incision when you arrive home at least once daily. Do not take a tub bath, sit in a hot tub or go into a swimming pool until after your first recheck in the office. SPECIAL CARE INSTRUCTIONS: VERY IMPORTANT TO READ AND REVIEW A. Your surgical incision has been closed with a cosmetic suture under the skin that will dissolve in about 6 weeks. In 14 days, you can use a pair of clean scissors and cut the suture that is left outside of the skin at the ends of your incision. 1. The small skin tapes can be removed 7 days after surgery if they have not fallen off by that point. 2. You may keep the wound open to air as much as possible to promote healing after post-op day number 5 unless told otherwise by your doctor. 3. If you think the wound looks like it is becoming infected (redness or worsening drainage) and/or you are experiencing fever, chill or worsening back pain and muscle spasms, contact the office so that we may evaluate you as soon as possible. B. Complications are uncommon, but please contact us if you have any signs or symptoms of: 1. wound infection (fever higher than 102.5 degrees F, redness, separation of wound, drainage, or increasing pain from the incision) 2. blood clots in legs (pain, swelling, redness and warmth in legs) 3. urinary tract infection (fever higher than 102.5 degrees F, burning upon urination or increased frequency of urination) 4. nerve problems (inability to walk on your toes or heels, numbness, loss of bowel or bladder control) 5. any other symptoms that concern you C. Please call the office at if you have any concerns or questions about your operation or recovery. D. No smoking! Smoking drastically decreases the chance of a solid fusion. E. Do not take any anti-inflammatory medications (Indocin, Advil, Motrin, Aspirin, Naprosyn, etc.) as these may inhibit the chance of a solid fusion. Tylenol is okay to take for pain. MANAGING PAIN AFTER SPINAL SURGERY 1. Narcotic medication is intended for short-term use and will be provided for surgical pain. Surgical pain usually lasts for a period of 4-6 weeks. Narcotic medication includes Percocet, Vicodin, Darvocet, Tylenol #3 or Lortab. 2. Longer-term pain is more appropriately treated with non-narcotic medication such as Tylenol ES. 3. Muscle spasm is not appropriately treated with narcotics. Muscle relaxers such as Soma, Flexeril or Skelaxin can be used along with Tylenol ES. 4. Remember that we all live with some "aches and pains". This is not unusual or uncommon after an injury or as we get older. a. Back pain is expected and may include muscle spasms for 4 to 6 weeks after surgery. The pain should gradually improve. If the pain worsens for no apparent reason, please contact the office. b. Intermittent leg pain may also be experienced and should not be concerned about unless it worsens for no apparent reason. If so, please contact the office. 5. We will provide appropriate medication within the normal guidelines of their prescribed use. We will also be very cautious and aware of potential abuse and extended duration of patients' medication needs. a. Pain medications are for your comfort and to assist with sleep and rest so that the tissue can heal. They are not provided in order to return to normal activity and should not be used through the day. To do so or worsening pain at night can result from ongoing tissue damage and development of tolerance to the prescribed medicine. 6. Please allow 2-3 days to process refills. Prescriptions will not be mailed but must be picked up at the office. FOLLOW UP VISIT: Keep your scheduled follow-up appointment. Any questions, please call the office at . Current Hospital Diet Patient's current hospital diet: Regular Diet Discharge Diet Recommended Diet: Regular Diet Procedures Procedures Performed: L3-S1 Decompression, Posterior Instrumented Fusion, application of Magellan Arteriocyte with iliac crest bone marrow aspirate, use of bone morphogenetic protein; L1-S1 transforaminal lumbar interbody fusion with application of interbody cage Pending Studies Studies pending at discharge: no Medical Emergencies . Who to Call and When: Medical Emergencies: If at any time you feel your situation is an emergency, please call 911 immediately. . Non-Emergent Contact Non-Emergency issues call your: Surgeon Call Non-Emergent contact if: your pain is not controlled, your pain is worsening . "Provider Documentation" section prepared by Selwyn Hendrickson. VTE Core Measure Inpt VTE Proph given/why not?: SCD's [place] Drug Monitoring Program Search Results: patient reviewed within database
--- NOTE | 2016-12-15 14:03 | Progress Note ---
Subjective Date of Service: Dec 15, 2016. Subjective Pt evaluation today including: conversation w/ patient, physical exam, conversation w/ emergency management consultant, review of inpatient medication list Pain: back pain controlled PO Intake: adequate Voiding: no voiding problems no issues overnight doing well, no chest pain, no shortness of breath, back pain controlled planning for d/c tomorrow she is medically stable Review of Systems Musculoskeletal: + joint pain (back) All Other Systems: Reviewed and Negative Medications Current Inpatient Medications Medications (Trade) Dose Ordered Sig/Andre Route Start Time Stop Time Status Last Admin Dose Admin Albuterol (Ventolin Hfa Inhaler) 2 puffs QID PRN INH 12/13/16 13:45 01/12/17 13:44 Aspirin (Ecotrin Tab) 162 mg QAM PO 12/14/16 09:00 01/13/17 08:59 12/15/16 07:39 162 MG EZETIMIBE (Zetia Tab) 10 mg QPM PO 12/13/16 21:00 01/12/17 20:59 12/14/16 21:00 10 MG Fluticasone Propionate (Flovent Hfa 44MCG Inhaler) 2 puffs BID INH 12/13/16 21:00 01/12/17 20:59 12/15/16 07:39 2 PUFFS Gabapentin (Neurontin Cap) 300 mg HS PO 12/13/16 21:00 01/12/17 20:59 12/14/16 20:59 300 MG Levothyroxine Sodium (Synthroid Tab) 75 mcg DAILYBB PO 12/14/16 06:00 01/13/17 05:59 12/15/16 05:39 75 MCG Nitroglycerin (Nitrostat Tab) 0.4 mg UD PRN [place] 12/13/16 13:45 01/12/17 13:44 Rosuvastatin Calcium (Crestor Tab) 40 mg QPM PO 12/13/16 21:00 01/12/17 20:59 12/14/16 20:59 40 MG Pantoprazole Sodium 40 mg 40 mg QAM PO 12/14/16 09:00 01/13/17 08:59 12/15/16 07:39 40 MG Promethazine HCl/ Sodium Chloride (Phenergan Inj/ Nss 50ml) 50.5 ml @ 202 mls/hr Q6H PRN IV 12/13/16 13:45 01/12/17 13:44 Ondansetron HCl (Zofran Inj) 4 mg Q6H PRN IV 12/13/16 13:45 01/12/17 13:44 12/13/16 18:22 4 MG Metoclopramide HCl (Reglan Inj) 10 mg Q6H PRN IV 12/13/16 13:45 01/12/17 13:44 Lorazepam 0.5 mg 0.5 mg Q8H PRN PO 12/13/16 13:45 01/12/17 13:44 Lorazepam/Syringe (Ativan Inj/ Syringe) 1 ml @ 1 mls/min Q8H PRN IV 12/13/16 13:45 01/12/17 13:44 Polyethylene (Miralax Powder Packet) 17 gm Q6 PO 12/15/16 06:00 01/14/17 05:59 Bisacodyl (Dulcolax Supp) 10 mg DAILY PRN [place] 12/13/16 13:45 01/12/17 13:44 Magnesium Hydroxide (Milk Of Magnesia Susp) 30 ml DAILY PRN PO 12/13/16 13:45 01/12/17 13:44 Hydromorphone HCl (Dilaudid Inj) 0.5 mg Q3H PRN IV 12/14/16 06:00 12/28/16 05:59 Oxycodone HCl 5-10mg prn moderate to sev... Q4H PRN PO 12/14/16 06:00 12/28/16 05:59 12/15/16 07:38 5 MG Acetaminophen (Ofirmev Iv) 100 ml @ 400 mls/hr Q8H PRN IV 12/13/16 13:45 01/12/17 13:44 Naloxone HCl (Narcan Inj) 0.1 mg Q5M PRN IV 12/13/16 13:45 01/12/17 13:44 Senna/Docusate Sodium (Senokot S Tab) 2 tab HS PO 12/13/16 21:00 01/12/17 20:59 Sodium Biphosphate/ Sodium Phosphate (Fleet Enema) 132 ml ONE PRN [place] 12/13/16 13:45 01/12/17 13:44 Hydroxyzine HCl (Vistaril Tab) 25 mg Q8H PRN PO 12/13/16 13:45 01/12/17 13:44 Al Hydroxide/Mg Hydroxide (Maalox Susp) 30 ml Q6H PRN PO 12/13/16 13:45 01/12/17 13:44 Famotidine (Pepcid Tab) 20 mg Q12 PRN PO 12/13/16 13:45 01/12/17 13:44 Diphenhydramine HCl (Benadryl Cap) 25 mg Q6H PRN PO 12/13/16 13:45 01/12/17 13:44 Hydromorphone HCl (Dilaudid Inj) 1 mg Q3H PRN IV 12/14/16 06:00 12/28/16 05:59 Metoprolol Tartrate (Lopressor Tab) 25 mg BID@1200,2100 PO 12/14/16 12:00 01/13/17 11:59 12/15/16 07:40 25 MG Objective Vital Signs Date Time Temp Pulse Resp B/P Pulse Ox O2 Delivery O2 Flow Rate FiO2 12/15/16 08:06 Room Air 12/15/16 00:10 Room Air 12/14/16 23:13 36.8 85 16 110/65 97 Room Air 12/14/16 20:56 84 116/66 12/14/16 16:30 Room Air 12/14/16 15:37 36.5 85 18 107/65 96 Room Air Physical Exam General Appearance: WD/WN, no apparent distress Eyes: normal inspection, EOMI, sclerae normal Neck: supple, no adenopathy, no JVD, trachea midline Respiratory/Chest: chest non-tender, lungs clear, normal breath sounds, no respiratory distress, no accessory muscle use Cardiovascular: regular rate, rhythm, no edema, no gallop, no JVD, no murmur Abdomen: normal bowel sounds, non tender, soft, no organomegaly Extremities: normal inspection, no pedal edema, no calf tenderness, normal capillary refill, pelvis stable, + pertinent finding (soaping machine back tender, decreased ROM , CECILY with serosanguinous, less drainage today) Neurologic/Psychiatric: lift manager II-XII nml as tested, no motor/sensory deficits, alert, normal mood/affect, oriented x 3 Skin: normal color, warm/dry, no rash Lymphatic: no adenopathy Assessment and Plan Patient is a pleasant 61 y/o female, s/p L3-S1 Decompression, Posterior Instrumented Fusion, application of Magellan Arteriocyte with iliac crest bone marrow aspirate, use of bone morphogenetic protein; L1-S1 transforaminal lumbar interbody fusion with application of interbody cage L3-S1 stenosis, degenerative spondylosis, and degenerative disc disease done by Dr. Perez on 12/13. - POD #2, doing well, sitting edge of bed, participating with therapy - DVT prophylaxis, pain management, and PT/OT per primary team - labs stable yesterday - no acute medical issues currently, will sign off, agree that she is stable for discharge tomorrow CAD s/p CABG in 2015: - Continue Metoprolol 25 mg BID (takes at noon and bedtime) - surgery wants to hold Plavix, please make sure that patient resumes once okay from surgical standpoint - Follows w/ Danny Koroma PA-C Hypercholesterolemia: Continue Zetia 10 daily and Crestor 40 mg HS Hypothyroidism: Continue Synthroid 75 mcg daily GERD: Protonix Asthma: - Continue Ventolin PRN and Flovent BID - O2 supplement, wean as tolerated--> Does NOT wear O2 supplement at home Code Status: LEVEL I, FULL will sign off, please call with any new medial issues, stable for discharge tomorrow currently
[2016-12-15 15:08] VITALS: BP 98/65; PULSE 78; TEMP 37; O2SAT 95
[2016-12-15 16:00] VITALS: O2SAT 95
[2016-12-15 19:42] VITALS: O2SAT 95
[2016-12-15] MEDS: DOCUSATE SODIUM/SENNA 50/8.6MG TAB PO SCH (21:00)
[2016-12-15] MEDS: ROSUVASTATIN CALCIUM 20 MG TAB PO SCH (21:06)
[2016-12-15] MEDS: EZETIMIBE 10MG TAB PO SCH (21:06)
[2016-12-15] MEDS: GABAPENTIN 300 MG CAP PO SCH (21:06)
[2016-12-15 22:59] VITALS: BP 104/61; PULSE 79; TEMP 36.7; O2SAT 98
[2016-12-16] MEDS: POLYETHYLENE (MIRALAX) 17 GM PACK PO SCH
[2016-12-16] MEDS ORDERED: NURSING VERBAL MED ORDER ONE (05:15)
[2016-12-16] MEDS: LEVOTHYROXINE 75 MCG TAB PO SCH (06:12)
[2016-12-16] MEDS: OXYCODONE HCL IR 5 MG TAB (IMMEDIATE RELEASE) PO PRN ×2 (06:12→16:24)
[2016-12-16 06:16] VITALS: BP 133/74; PULSE 84; TEMP 36.8; O2SAT 95
[2016-12-16] MEDS: ASPIRIN 81 MG ECTAB PO SCH (08:27)
[2016-12-16] MEDS: FLUTICASONE PROP HFA INH 44 MCG INHALER INH SCH (08:27)
[2016-12-16] MEDS: PANTOprazole SOD 40 MG TAB PO SCH (08:27)
[2016-12-16] MEDS: METOPROLOL TARTRATE 25 MG TAB PO SCH (12:16)
[2016-12-16] MEDS ORDERED: RXC5 PO (15:19)
--- NOTE | 2016-12-16 15:20 | Orthopedic Progress Note ---
Orthopedic Progress Note Date of Service Dec 16, 2016. Subjective Post OP Day: 3 Reports: feeling well, pain controlled w PO medications, Denies: SOB, calf pain , chest pain, complaints, light headedness, nausea / vomiting, using PROFESSOR OF BIOCHEMISTRY Objective calves soft nontender, N/V intact, dressing C/D/I, A&O x3, hemovac drainage Date Time Temp Pulse Resp B/P Pulse Ox O2 Delivery O2 Flow Rate FiO2 12/16/16 13:19 Room Air 12/16/16 06:16 36.8 84 20 133/74 95 Room Air 12/15/16 23:55 Room Air 12/15/16 22:59 36.7 79 17 104/61 98 Room Air 12/15/16 19:42 95 Room Air 12/15/16 16:00 95 Room Air Assessment & Plan Assessment: stable, start PT, SCDs, d/c drain, d/c home Discharge Planning Discharge Planning: home
[2016-12-16 15:22] VITALS: BP 133/74; PULSE 84; TEMP 36.8; O2SAT 95
--- NOTE | 2016-12-27 15:13 | Discharge Summary ---
Orthopedic Discharge Summary Admission Date/Reason Dec 13, 2016 at 11:29 Lumbar Spinal Stenosis. Discharge Date/Disposition Dec 16, 2016 Home Diagnosis Principal Diagnosis: same Procedure(s) Performed L3-S1 decompression/PSF Medication Reconciliation New Medications: Oxycodone HCl (Oxycodone HCl) 5 Mg Tab 5-10 MG PO Q4H PRN for Moderate - severe pain, #90 TAB Continued Medications: Albuterol (Ventolin Hfa) Aers 2 INHA INH QID PRN for WHEEZING Aspirin (Aspirin Ec) 81 Mg Tab 162 MG PO QAM Clopidogrel (Plavix) 75 Mg Tab 75 MG PO QPM, TAB Esomeprazole Magnesium (Nexium) 20 Mg Capcr 20 MG PO QAM, CAP Estradiol Vaginal (Vagifem) 10 Mcg Tab 1 SUPP PV 2XWK for 28 Days, #8 TAB 11 Refills Ezetimibe (Zetia) 10 Mg Tab 10 MG PO QPM, TAB Fluticasone Propionate (Flovent Hfa) 120 Puffs/5280 Mcg Aero 2 PUFFS INH BID for 30 Days, #10.6 GM 2 Refills Gabapentin (Neurontin) 300 Mg Cap 300 MG PO HS, CAP Levothyroxine Sodium (Synthroid) 75 Mcg Tab 1 TAB PO QAM for 30 Days, #30 TAB 5 Refills Metoprolol Tartrate (Lopressor) (Lopressor) 25 Mg Tab 25 MG PO BID, TAB Nitroglycerin (Nitrostat) 0.4 Mg Sub 0.4 MG UT PRN, BTL Rosuvastatin Calcium (Crestor) 40 Mg Tab 1 TAB PO QPM for 30 Days, TAB 5 Refills Discontinued Medications: Ibuprofen Tab (Motrin) 600 Mg Tab 1 TAB PO TID PRN for PRN for 30 Days, #90 TAB Tramadol (Ultram) 50 Mg Tab 1 TAB PO Q6 PRN for PRN for pain. for 30 Days, #90 TAB Admission Physical Exam As per Admitting History & Physical. Hospital Course She was admitted for elective lumbar surgery and underwent the procedure without complication. The patient was transferred to floor in stable condition , mobilized with PT, remained hemodynamically stable, had pain controlled on oral meds, and was discharged in stable condition. Discharge Instructions Please refer to the electronic Patient Visit Report (Discharge Instructions) for additional information.
== END 2016-12-16 17:00 | disposition home or self-care (01) | DRG 460 ==
LOC: ENRESERVTM → ENRESERVDT → C.ACU 08:18 → C.3E 11:29
PROVIDERS: ADMIT Orthopaedic Surgery Orthopaedic Surgery of the Spine; ATTEND Orthopaedic Surgery Orthopaedic Surgery of the Spine
PROC: 07DR3ZZ Extraction of Iliac Bone Marrow, Percutaneous Approach (ICD-10-PCS; principal; 2016-12-13 10:15)
PROC: 0SG30A1 (ICD-10-PCS; principal; 2016-12-13 10:15)
PROC: 0SG10A1 (ICD-10-PCS; principal; 2016-12-13 10:15)
DX: M48.07 Spinal stenosis, lumbosacral region (principal); M48.06 Spinal stenosis, lumbar region; M43.16 Spondylolisthesis, lumbar region; M43.17 Spondylolisthesis, lumbosacral region; J45.909 Unspecified asthma, uncomplicated; I25.10 Atherosclerotic heart disease of native coronary artery without angina pectoris; F17.200 Nicotine dependence, unspecified, uncomplicated; K21.9 Gastro-esophageal reflux disease without esophagitis; E03.9 Hypothyroidism, unspecified; Z95.1 Presence of aortocoronary bypass graft; I10 Essential (primary) hypertension; Z80.3 Family history of malignant neoplasm of breast; Z80.0 Family history of malignant neoplasm of digestive organs; Z80.41 Family history of malignant neoplasm of ovary; Z82.49 Family history of ischemic heart disease and other diseases of the circulatory system; Z79.82 Long term (current) use of aspirin; E78.00 Pure hypercholesterolemia, unspecified

== ENCOUNTER → 2017-07-08 | Outpatient (CLI) | payer OTHER ==
[~2017-07-08] MED LIST changes: -CEFAZOLIN 2000 MG/60 ML D5W IV SCH; -CELEBREX-ALLERGY NOTED TO ORDERED MEDICATION SCH; -CeleBREX 200 MG CAP PO SCH; -DOCU100C31 PO; -FENTANYL CITRATE INJ 50 MCG/1 ML 2 ML VIAL ONE; -IBUP-1427 PO; -LACTATED RINGER'S 1000ML 1,000 ML IV SCH; -LIDOCAINE HCL 2% 2 ML VIAL (20MG/ML) ONE; -MIDAZOLAM HCL 1 MG/ML 2ML VIAL ONE; -PREGABALIN 75 MG CAP PO SCH; -PROPOFOL IV EMULSION 10 MG/ML 20 ML VIAL IV ONE; +RXC5 PO; -TRAM-10 PO
[2017-07-08 15:02] LABS: ALT/SGPT 26 U/L (12-78); BLOOD UREA NITROGEN 20 mg/dl (7-18); BUN/CREATININE RATIO 20.1 (10-20); CARBON DIOXIDE 25 mmol/L (21-32); CHLORIDE 110 mmol/L (98-107); CHOLESTEROL 131 mg/dl (0-200); CREATININE 1.01 mg/dl (0.60-1.20); GLUCOSE 123 mg/dl (70-99); POTASSIUM 4.3 mmol/L (3.5-5.1); SODIUM 142 mmol/L (136-145); TRIGLYCERIDES 117 mg/dl (0-150); VERY LOW DENSITY LIPOPROT CALC 23 mg/dl
[2017-07-08 15:14] LABS: CHOLESTEROL/HDL RATIO 2.4; HDL CHOLESTEROL 54 mg/dl; LDL CHOLESTEROL CALCULATED 54 mg/dl
== END | disposition home or self-care (01) ==
LOC: C.LABPBG 10:17
PROVIDERS: ATTEND Family Medicine
DX: E03.9 Hypothyroidism, unspecified (principal); I25.10 Atherosclerotic heart disease of native coronary artery without angina pectoris; E78.5 Hyperlipidemia, unspecified

== ENCOUNTER → 2018-01-07 | Outpatient (CLI) | payer OTHER ==
[2018-01-07 13:45] LABS: ALBUMIN 3.6 gm/dl (3.4-5.0); ALT/SGPT 29 U/L (12-78); AST/SGOT 25 U/L (15-37); BLOOD UREA NITROGEN 19 mg/dl (7-18); CALCIUM 8.4 mg/dl (8.5-10.1); CARBON DIOXIDE 27 mmol/L (21-32); CHOLESTEROL 186 mg/dl (0-200); CREATININE 0.89 mg/dl (0.60-1.20); GLUCOSE 124 mg/dl (70-99); POTASSIUM 4.5 mmol/L (3.5-5.1); SODIUM 141 mmol/L (136-145)
[2018-01-07 13:54] LABS: ALKALINE PHOSPHATASE 112 U/L (45-117); LDL CHOLESTEROL CALCULATED 98 mg/dl; TOTAL PROTEIN 6.8 gm/dl (6.4-8.2)
== END | disposition home or self-care (01) ==
LOC: C.LABPBG 09:42
PROVIDERS: ATTEND Family Medicine
DX: E03.9 Hypothyroidism, unspecified (principal); E78.5 Hyperlipidemia, unspecified; K21.9 Gastro-esophageal reflux disease without esophagitis

== ENCOUNTER 2022-03-29 09:09 | Inpatient (IN) ==
--- NOTE | 2022-03-05 15:28 | PAT Medication Instructions ---
Medication Instructions Date of Service March 05, 2022 Home Medications Medication Instructions Recorded canagliflozin 100 mg tablet 100 mg PO QAM #30 tab 10/27/21 (Invokana) levothyroxine 75 mcg tablet See Rx Instructions .ROUTE 10/27/21 .COMPLEX #30 tab omeprazole 40 mg capsule,delayed 40 mg PO QAM #30 cap 10/27/21 release rosuvastatin 40 mg tablet 40 mg PO DAILY #30 tab 01/26/22 fluticasone propionate 220 2 puff INH BID #12 gm 03/05/22 mcg/actuation HFA aerosol inhaler (Flovent HFA) canagliflozin 100 mg tablet (Invokana) 100 mg PO QAM levothyroxine 75 mcg tablet See Rx Instructions .ROUTE .COMPLEX omeprazole 40 mg capsule,delayed release 40 mg PO QAM rosuvastatin 40 mg tablet 40 mg PO DAILY ezetimibe 10 mg tablet (Zetia) 10 mg PO QPM aspirin 81 mg tablet 162 mg PO QAM diclofenac sodium 1 % topical gel 2 g TOPICAL QID PRN fluticasone propionate 220 mcg/actuation HFA aerosol inhaler (Flovent HFA) 2 puff INH BID nitroglycerin 0.2 mg/hr transdermal 24 hour patch 1 patch TRANSDERMAL DAILY Continue as directed nitroglycerin 0.2 mg/hr transdermal 24 hour patch 1 patch TRANSDERMAL DAILY (avoid placement near surgery site prior to surgery) STOP taking 24 hours before surgery diclofenac sodium 1 % topical gel 2 g TOPICAL QID PRN Take morning of surgery With a small sip of water, OTHERWISE NOTHING TO EAT OR DRINK AFTER MIDNIGHT: levothyroxine 75 mcg tablet See Rx Instructions .ROUTE .COMPLEX omeprazole 40 mg capsule,delayed release 40 mg PO QAM rosuvastatin 40 mg tablet 40 mg PO DAILY fluticasone propionate 220 mcg/actuation HFA aerosol inhaler (Flovent HFA) 2 puff INH BID Take evening before surgery ezetimibe 10 mg tablet (Zetia) 10 mg PO QPM fluticasone propionate 220 mcg/actuation HFA aerosol inhaler (Flovent HFA) 2 puff INH BID Other Notes STOP 3 days before surgery canagliflozin 100 mg tablet (Invokana) 100 mg PO QAM If you have any questions please call us at [phone] or [phone] or [phone] or [phone]
--- NOTE | 2022-03-07 13:28 | Anesthesiology Consultation ---
Date of Service March 07, 2022 Assessment & Plan (1) Encounter for pre-operative examination: Chart Review Chart Review: Acceptable Risk for Surgery (pending cardio appt 03/22/22 and preop Covid testing results ) and Patient seen in Pre Admission Testing - Awaiting routine cardio appt 03/22 at [facility] (pt will discuss upcoming surgery with cardio at that time) - Check BSG AM DOS Per PAT appt on 03/07/22, patient denies any recent travel or large group activities. No known Covid positive exposures or Covid related symptoms. No known Covid infection in the past 90 days.Pt is vaccinated for Covid. Preop Covid testing scheduled 03/27/22 = will await results. Educated on importance of self quarantining, social distancing and wearing mask in public for the patient one week prior to surgery and after Covid testing done Teaching & Discussion Pre-Anesthesia Teaching/Discussion Notes: Instructed NPO after midnight before surgery,except medications with 15 cc of water. Medication instructions provided according to the [facility] guidelines. History Surgery Operation Date: 03/29/22 09:05 Proposed Procedures p Right Total Shoulder Arthroplasty Reverse - Rudy Varela M.D. Height/Weight Height: 5 ft 2 in Weight: 69.6 kg Allergies Allergy/AdvReac Type Severity Reaction Status Date / Time adhesive Allergy Mild HIVES Verified 03/05/22 10:46 rofecoxib Allergy Mild RASH,NAUSEA Verified 03/05/22 10:46 AND VOMITING,CHEST PAIN Medications Home Medications Medication Instructions Recorded Confirmed Last Taken canagliflozin 100 mg tablet 100 mg PO QAM #30 tab 10/27/21 03/05/22 Unknown (Invokana) levothyroxine 75 mcg tablet See Rx Instructions .ROUTE 10/27/21 03/05/22 Unknown .COMPLEX #30 tab omeprazole 40 mg capsule,delayed 40 mg PO QAM #30 cap 10/27/21 03/05/22 Unknown release rosuvastatin 40 mg tablet 40 mg PO DAILY #30 tab 01/26/22 03/05/22 Unknown ezetimibe 10 mg tablet (Zetia) 10 mg PO QPM 02/20/22 03/05/22 Unknown aspirin 81 mg tablet 162 mg PO QAM 03/05/22 03/05/22 Unknown diclofenac sodium 1 % topical gel 2 g TOPICAL QID PRN 03/05/22 03/05/22 Unknown fluticasone propionate 220 2 puff INH BID #12 gm 03/05/22 Unknown mcg/actuation HFA aerosol inhaler (Flovent HFA) nitroglycerin 0.2 mg/hr 1 patch TRANSDERMAL DAILY 03/05/22 03/05/22 Unknown transdermal 24 hour patch metoprolol succinate 25 mg 25 mg PO QPM 03/07/22 03/07/22 Unknown tablet,extended release 24 hr Past Medical History Medical History (Updated 03/07/22 @ 13:53 by Yanely Carvajal PA-C) Asthma uses PRN inh 2xmo on avg; WELL CONTROLLED CAD (coronary artery disease) S/p 3 vessel CABG 2014 Follows with Danny Koroma CKD (chronic kidney disease) Stage III GERD (gastroesophageal reflux disease) Well controlled and stable History of COVID-19 10/2021 FEVER, COUGH, VOMITING, NO HOSPITALIZATION No current issues HLD (hyperlipidemia) [place] (hard of hearing) No hearing aids HTN (hypertension) Hypothyroidism Kidney stones No current issues Left bundle branch block Chronic Lumbar spinal stenosis Lumbosacral disc disease Osteoporosis Had recent infusion (gets yearly) Paroxysmal ventricular tachycardia Documented in per cardio records Poor historian Type 2 diabetes mellitus Glucose controlled per patient Exercise / Class Metabolic Activity II 4-5 Yardwork/Stairs/Walk up hill (one flight of stairs - no chest pain or SOB ) Past Family History Family History Father Malignant neoplasm of stomach Myocardial infarction Mother Myocardial infarction Daughter Slow to wake up after anesthesia Sister Hearing loss Heart disease Other No family history of adverse response to anesthesia No family history of bleeding disorder Denies family history of Ovarian cancer Prostate cancer Breast cancer Colorectal cancer Past Surgical History Surgical History H/O cardiac catheterization 2014 - [place] - SOB, syncope --> CABG 1991 - no stents 1989- normal coronary arteries- RCA vasospasm - reproduces patient's chronic chest pain H/O cataract extraction 2000 History of back surgery History of bladder surgery bladder tack History of cervical spinal surgery ROM [id number] History of colonoscopy History of coronary artery bypass graft 2014 3 vessels; follows with aDnny Koroma History of esophagogastroduodenoscopy (EGD) History of lumpectomy of left breast benign History of tonsillectomy S/P shoulder surgery RIGHT Past Anesthesia History No Hx of Anesthesia Complications and No Family Hx of Anesthesia Complications (with exception to slow to wake with daughter- no reintubation or ICU stay ) History of PONV No Hx of PONV and No Hx of Motion Sickness Social History Smoking Status: Never smoker Do You Dip or Chew Tobacco: No Hx Alcohol Use: No Hx Substance Use: No substance use type: does not use Review of Systems Occ snoring- hx of sleep study - no ROBERTO Patient denies chest pain, shortness of breath, dyspnea on exertion, cough, wheezing, palpitations. No hx of seizures, stroke. No hx of blood clots or blood transfusions Physical Exam Vital Signs VITALS BP 113/74 P 70 TEMP 97.9 SP02 97% RESP 16 Constitutional no acute distress ENMT Mouth: + small oral opening; no TMJ clicking Thyromental Distance: < 3.5 Finger Breadths (2.5) Mallampati Class: III Full dentures on top and bottom Neck + limited neck extension (mild ) Respiratory normal respiratory effort; no respiratory distress Auscultation: lungs clear to auscultation bilaterally and + diminished lung sounds (mildly throughout ); no wheezes Cardiovascular Rate/Rhythm: regular rate and regular rhythm Heart Sounds: no murmur Vessels: no carotid bruit Musculoskeletal Spine: + pain with cervical ROM (mild ) Extremities: extremities normal to inspection Psychiatric Orientation: alert Lab Results Anesthesia Preop Results Results Anesthesia Widget: WBC 8.63 K/uL (4.8-10.8) 03/07/22 Hgb 12.3 g/dL (12.0-16.0) 03/07/22 Hct 37.9 % (37-47) 03/07/22 Plt 327 K/uL (130-400) 03/07/22 Na 139 mmol/L (136-145) 03/07/22 K 4.3 mmol/L (3.5-5.1) 03/07/22 Cl 110 mmol/L (98-107) H 03/07/22 CO2 23 mmol/L (21-32) 03/07/22 BUN 18 mg/dl (6-23) 03/07/22 Creat 1.20 mg/dl (0.6-1.2) 03/07/22 Glucose Level 103 mg/dl (70-99(Fasting)) H 03/07/22 PT 10.6 Seconds (9.0-12.0) 03/07/22 PTT 26.0 Seconds (21.0-31.0) 03/07/22 INR 1.0 (0.9-1.1) 03/07/22 TSH 4.282 uIu/ml (0.300-4.500) 01/23/22 HA1c 7.5 % (4.5-5.6) H 03/07/22 Urine Color Yellow 03/07/22 Urine Appearance Clear (Clear) 03/07/22 Urine pH 5.5 (4.5-7.5) 03/07/22 Urine Specific Rufus 1.018 (1.000-1.030) 03/07/22 Urine Protein 2+ (Negative) H 03/07/22 Urine Glucose (UA) 3+ (Negative) H 03/07/22 Urine Ketones Negative (Negative) 03/07/22 Urine Blood 2+ (Negative) H 03/07/22 Urine Nitrite Negative (Negative) 03/07/22 Urine Bilirubin Negative (Negative) 03/07/22 Urine Urobilinogen Negative (Negative) 03/07/22 Urine Leukocyte Esterase Negative (Negative) 03/07/22 Urine WBC (Auto) 1-5 /hpf (0-5) 03/07/22 Urine RBC (Auto) 0-4 /hpf (0-4) 03/07/22 Urine Hyaline Casts (Auto) 1-5 /lpf (0-5) 03/07/22 Urine Epithelial Cells (Auto) >30 /lpf (0-5) H 03/07/22 Urine Bacteria (Auto) Negative (Negative) 03/07/22 Blood Type B Positive 03/07/22 Antibody Screen NEGATIVE 03/07/22 Testing Electrocardiogram Date: 03/07/22 Sinus rhythm with first-degree AV block at 72 bpm Left axis deviation Left bundle branch block When compared to EKG from October 31, 2019PVCs are no longer present, NE interval has increased, ventricular rate has decreased by 35 bpm, left bundle branch block is replaced nonspecific intraventricular conduction block per cardio. (Pt with chronic hx of LBBB) Chest X-Ray Date: 03/08/22 Findings: + NAD FINDINGS: PA and lateral chest radiographs are compared to study dated 11/05/2021. The patient is status post midline sternotomy. The cardiomediastinal silhouette is top normal for projection. Epicardial pacing leads are in place. There is chronic elevation of the left hemidiaphragm with left basilar scarring/atelectasis. The lungs and pleural spaces are otherwise clear. There is no pneumothorax. The the skeletal structures are osteopenic. The bony thorax appears intact. Fusion hardware is noted in the lower cervical spine. Echocardiogram Date: 12/21/21 EF: 55-59% LV Function: normal Other Findings: + LVH (mild/concentric ) and + diastolic dysfunction (Grade I ) Septal motion is abnormal consistent with LBBB. Otherwise- no RWMA. Mild AV sclerosis Atrial septal aneurysm. Compared to prior study of 05/26/20- no significant change was found. Stress Test Date:12/12/20 Type:nuclear Myocardial perfusion imaging is normal. Paradoxical septal motion consistent with left bundle branch block. Otherwise normal perfusion with wall motion. LVEF 60%. When compared to previous study in March 2018no change was found. Baseline EKG shows sinus rhythm with left bundle branch block. Cardiac Catheterization Date:07/13/15 LM =50-60% LAD =80% within the LAD at end extension of the left main at the very ostial portion, additional 80% stenosis at second diagonal, 60% narrowing after diagonal and LAD. Mild irregularities in its midportion Circumflex = mild luminal irregularities only. RCA = minimal irregularities. (Patient had subsequent three-vessel CABG)
--- NOTE | 2022-03-28 15:23 | History & Physical Report ---
Date of Service March 28, 2022 Assessment & Plan (1) Right rotator cuff tear arthropathy: Plan: She has a massive, retracted, irrepairable rotator cuff tear in her right shoulder, and is developing rotator cuff tear arthropathy. I explained this process to her. I advised her that the only viable surgical treatment option at this point would be a reverse total shoulder arthroplasty. We discussed the mechanics behind reverse total shoulder, and how this can help with her pain. We discussed further conservative treatment with repeat steroid injection versus definitive surgical intervention with a shoulder replacement, and she elected for the latter at this point. I think this is reasonable, especially since she got no relief from her previous injection. She will need cardiac clearance prior to surgery. Risks, benefits, and alternatives of surgery were explained in detail. The surgical procedure, as well as postoperative recovery and rehabilitation, was also explained in detail. Risks include bleeding; infection; damage to surrounding structures such as nerves, blood vessels, and tendons that run in the area; persistent pain or stiffness; hardware failure; dislocation; brachial plexus palsy; blood clots; or need for further surgery. The patient u nderstands all of this and wishes to proceed with surgery. Informed consent was obtained. History of Present Illness Chief Complaint: Right shoulder pain and weakness Primary Care Provider: Bess Thornton MD Ms. Goldman is a 66-year old female referred over from Dr. Chávez for further evaluation of right shoulder pain and weakness. She previously had right shoulder rotator cuff repair in March 2021. Previous operative report was reviewed. She underwent a right shoulder arthroscopy with rotator cuff repair, debridement of labral tear, subacromial decompression, and distal clavicle excision on 03/28/21. After that surgery, she reports that she did fairly well until around August 2021. She was able to abduct her shoulder overhead, and can still do this, but it started getting very painful to reach out to the side around August, with progressive worsening since then. The pain is now waking her up at night. She last had a subacromial steroid injection in October 2021, and reports very minimal relief of her pain with that injection, only about a week. Of note, she does have a history of coronary artery disease with a triple bypass in 2014. No myocardial infarction since then. She is on aspirin 81 mg daily for this. Allergies Allergy/AdvReac Type Severity Reaction Status Date / Time adhesive Allergy Mild HIVES Verified 03/05/22 10:46 rofecoxib Allergy Mild RASH,NAUSEA Verified 03/05/22 10:46 AND VOMITING,CHEST PAIN Home Medications Medication Instructions Recorded Confirmed Type canagliflozin 100 mg tablet 100 mg PO QAM #30 tabs 10/27/21 03/05/22 Rx (Invokana) levothyroxine 75 mcg tablet See Rx Instructions .Route 10/27/21 03/05/22 Rx .COMPLEX #30 tabs omeprazole 40 mg capsule,delayed 40 mg PO QAM #30 caps 10/27/21 03/05/22 Rx release rosuvastatin 40 mg tablet 40 mg PO DAILY #30 tabs 01/26/22 03/05/22 Rx ezetimibe 10 mg tablet (Zetia) 10 mg PO QPM 02/20/22 03/05/22 History aspirin 81 mg tablet 162 mg PO QAM 03/05/22 03/05/22 History diclofenac sodium 1 % topical gel 2 g topical QID PRN Pain 03/05/22 03/05/22 History fluticasone propionate 220 2 puff inhalation BID Asthma #12 03/05/22 Rx mcg/actuation HFA aerosol inhaler grams (Flovent HFA) nitroglycerin 0.2 mg/hr 1 patch transdermal DAILY 03/05/22 03/05/22 History transdermal 24 hour patch metoprolol succinate 25 mg 25 mg PO QPM 03/07/22 03/07/22 History tablet,extended release 24 hr Past Med/Surg History Medical History (Updated 03/28/22 @ 15:22 by Rudy Varela M.D.) Asthma uses PRN inh 2xmo on avg; WELL CONTROLLED CAD (coronary artery disease) S/p 3 vessel CABG 2014 Follows with Danny Koroma CKD (chronic kidney disease) Stage III GERD (gastroesophageal reflux disease) Well controlled and stable History of COVID-19 10/2021 FEVER, COUGH, VOMITING, NO HOSPITALIZATION No current issues HLD (hyperlipidemia) [place] (hard of hearing) No hearing aids HTN (hypertension) Hypothyroidism Kidney stones No current issues Left bundle branch block Chronic Lumbar spinal stenosis Lumbosacral disc disease Osteoporosis Had recent infusion (gets yearly) Paroxysmal ventricular tachycardia Documented in per cardio records Poor historian Type 2 diabetes mellitus Glucose controlled per patient Surgical History H/O cardiac catheterization 2014 - [place] - SOB, syncope --> CABG 1991 - [place] - no stents 1989- normal coronary arteries- RCA vasospasm - reproduces patient's chronic chest pain H/O cataract extraction 2000 History of back surgery History of bladder surgery bladder tack History of cervical spinal surgery ROM [id number] History of colonoscopy History of coronary artery bypass graft 2014 3 vessels; follows with Danny Koroma History of esophagogastroduodenoscopy (EGD) History of lumpectomy of left breast benign History of tonsillectomy S/P shoulder surgery RIGHT Family History Father Malignant neoplasm of stomach Myocardial infarction Mother Myocardial infarction Daughter Slow to wake up after anesthesia Sister Hearing loss Heart disease Other No family history of adverse response to anesthesia No family history of bleeding disorder Denies family history of Ovarian cancer Prostate cancer Breast cancer Colorectal cancer Social History Smoking Status: Never smoker Second Hand Exposure: No; Hx Alcohol Use: No Hx Substance Use: No Preferred Language: Welsh Communication Ability: Effective Visual Impairment: No Limitations Hearing Ability: Normal Logistics Team Leader Required: No Beliefs That Will Affect Care: None marital status: / Current Living Situation: Alone current occupational status: retired Feels Safe at Home: Yes Childhood Exposure to Second-Hand Smoke: Yes Dental Care, Regularly: Yes Physical Activity Frequency: 1-2 Times per Week Seatbelt Use: sometimes Sunscreen Use: No Assistive Devices: Denture - Upper, Denture - Lower and Glasses Physical Exam Physical Exam: Examination of the right shoulder shows moderate limitation in shoulder range of motion due to pain, with palpable crepitus during motion. Rotator cuff strength is globally weak. Results & Data ([facility]) Diagnostic Findings Previous x-rays of the right shoulder from October 2021 were reviewed. No significant glenohumeral joint arthritis. No obvious proximal migration of the humeral head. There is some acromioclavicular joint arthritis, with what appears to be a resection of the inferior portion of the distal clavicle. Incidentally noted are sternotomy wires. Previous MRI of the right shoulder from January 08 was reviewed. It shows a massive, full-thickness, retracted rotator cuff tear involving the entirety of the supraspinatus and infraspinatus tendons, as well as the upper portion of the subscapularis, with retraction of the tendon to the level of the glenoid rim. There is severe fatty atrophy of these 3 muscle bellies, with near complete fatty atrophy of the infraspinatus and at least 50% atrophy of the supraspinatus. 2 rotator cuff repair anchors are noted within the humeral head. There is no rotator cuff tissue extending out to these anchors. There is obvious superior migration of the humeral head, with articulation on the undersurface of the acromion.
[~2022-03-29 09:09] MED LIST changes: +ACETAMINOPHEN 500 MG TAB PO SCH; -ALBUAER2 INH; +ALLERGY Noted to ORDERED Medication SCH; -ASPI81TA28 PO; +BUPIVACAINE 0.5 % 5 MG/1 ML PF 10ML VIAL ONE; -CLOP1TAB15 PO; -ESOM20CA PO; -ESTR10TA PV; -EZET10TA63 PO; +FAMOTIDINE 20 MG TAB PO SCH; -FLVHFA44 INH; -GABA-113 PO; +GABAPENTIN 300 MG CAP PO SCH; -LEVO75TA PO; +LR 15ML/HR IV SCH; -METO25TA56 PO; +METOCLOPRAMIDE HCL 10 MG TABLET PO SCH; -NITR0.4S UT; -ROSU40TA PO; -RXC5 PO; +TRANEXAMIC ACID 1,000 MG **IV Pre-op IV SCH; +ceFAZolin 2000MG 2,000 MG/15 ML SYR IV SCH; +dexAMETHasone 4 MG TAB PO SCH
--- NOTE | 2022-03-29 10:19 | History & Physical Bridge Note ---
Date of Service March 29, 2022 History & Physical Bridge Note I have examined the patient, reviewed the History & Physical and in the interval since the performance of the History & Physical I have noted the following changes of clinical significance: no changes noted
[2022-03-29] MEDS ORDERED: fentaNYL citrate 100 MCG/2 ML VIAL ONE (10:52)
[2022-03-29] MEDS ORDERED: MIDAZOLAM HCL 1 MG/ML 2ML VIAL ONE (10:52)
[2022-03-29] MEDS ORDERED: LIDOCAINE 2% 2 ML VIAL/AMP(20MG/ML) INFIL ONE (10:53)
[2022-03-29] MEDS ORDERED: PROPOFOL IV EMULSION 10 MG/ML 20 ML VIAL IV ONE (10:53)
[2022-03-29] MEDS ORDERED: ONDANSETRON INJ 2 MG/ML 2 ML VIAL ONE (13:33)
[2022-03-29] MEDS ORDERED: PHENYLEPHRINE 100MCG/ML 5ML SYR ONE (13:47)
[2022-03-29] MEDS ORDERED: WATER, STERILE FOR INJ 10 ML VIAL ONE (13:47)
[2022-03-29] MEDS ORDERED: ePHEDrine sulfate 50 MG/ML AMP ONE (13:47)
--- NOTE | 2022-03-29 14:11 | Operative Report ---
Post Operative Report Pre & Post Diagnosis Operation Date: 03/29/22 12:00 Pre-Op Diagnosis: Right Shoulder Rotator Cuff Tear Arthropathy Post-Op Diagnosis: Right Shoulder Rotator Cuff Tear Arthropathy I identified the patient and participated in the time-out.: Yes Procedure Operation Date: 03/29/22 12:00 Actual Procedures Right reverse total shoulder arthroplasty (50684) Open biceps tenodesis (88636) - Rudy Varela M.D. Surgeon Rudy Varela Senior Accounting Specialist Thien Owens PA-C Estimated Blood Loss 75 Findings Consistent with Post-Op Diagnosis Specimens None Drains None Anesthesia Type General Regional Complications none Disposition Disposition: Recovery Room Indications Ms. Goldman is a 66-year-old female who previously had an attempt at rotator cuff repair, with subsequent failure and development of progressively worsening pain and weakness consistent with rotator cuff tear arthropathy. History, clinical exam, and imaging were consistent with the above diagnosis. Risks, benefits, and alternatives of surgery were explained in detail. The patient understood all this and wished to proceed. Description of Procedure Components Implanted: Tornier Reverse Total Shoulder implants Perform glenoid baseplate: 25mm, 15 degree full wedge with 6.5mm central screw and 5.0mm peripheral screws Glenosphere: 36mm standard Ascend Flex humeral stem: 6B Standard length (86mm) Humeral tray: 1.5 mm offset, +0mm thickness Polyethylene insert: 36mm, +9mm thickness Patient was identified in the preoperative holding area. Operative extremity was marked. Regional blockade was given by the Anesthesia Staff. Patient was then brought back to the operating room, and general anesthesia was induced without complication. Appropriate weight-based dose of Ancef was infused intravenously for antibiotic prophylaxis. The patient was then placed in the beachchair position. Right arm was then prepped and draped in a standard st erile fashion using Chlorhexidine prep. A standard deltopectoral incision was made through the skin and subcutaneous tissue. The cephalic vein was identified and retracted medially. Small branches to the deltoid were coagulated as necessary. The clavipectoral fascia was then incised and the subdeltoid space was opened. The rotator cuff was found to be deficient, and I therefore decided to perform a reverse total shoulder arthroplasty as planned preoperatively. The biceps tendon was identified within the bicipital groove and tenodesed at the superior border of the pectoralis tendon with #2 FiberWire suture. The biceps tendon was then divided proximal to the tenodesis site and the rotator interval was opened. The proximal portion of the biceps tendon was excised. The remaining subscapularis tendon was elevated subperiosteally off of the lesser tuberosity. The glenohumeral joint was then dislocated, and large osteophytes were debrided with a ronguer. Previously placed rotator cuff repair anchors and sutures were found without rotator cuff tendon tissue attached, and were removed as they were encountered. The intramedullary canal of the humerus was then opened with a canal finder. The humeral head cut was then made in the appropriate inclination and version using the cutting guide. The humeral canal was then sequentially broached to the appropriate size. A protective cap was then placed on top of the humeral trial. I then turned my attention to the glenoid. The proximal stump of the biceps tendon was excised, along with the labrum circumferentially around the glenoid. The Blueprint drill guide was then positioned on the glenoid, and the guidepin was then inserted. The 15 degree angled reamer was then inserted over the guidepin and an reamed to an appropriate depth. The central screw hole was drilled, and appropriate length 6.5mm central screw was selected. The baseplate was then implanted into place according to our preoperative Blueprint plan by ti ghtening down the central screw. A peripheral 5mm nonlocking screw was placed superiorly first for additional compression of the baseplate, and then additional locking 5 mm peripheral screws were placed to complete fixation of the baseplate. Glenosphere was then impacted and secured. A trial humeral tray and insert were placed on the trial humeral stem, and a trial reduction was carried out. Once I achieved acceptable joint stability and range of motion with the trial implants, the final humeral implants were assembled on the back table and then impacted into position. I then took the shoulder through full range of motion to ensure good stability and acceptable motion. Wound was then copiously irrigated with sterile saline. Deep fascia was closed with 0 V-lock suture. Subcutaneous tissue was closed with 2-0 V-lock, and skin was closed with 3-0 V-lock. Skin was then sealed with Dermabond. Sterile dressings were then applied with a waterproof silver-impregnated dressing, and the arm was placed into a sling. The patient was awakened from anesthesia and taken to the Post Anesthesia Care Unit in stable condition. There were no immediate complications from the procedure. I was present and scrubbed for the entire procedure, with the exception of final skin closure and dressing application. Due to the complex nature of the procedure, the entire surgery was performed with the operational assistance of Thien Owens PA-C. The laboratory chemical assistant, under direct supervision, was involved in the performance of all aspects of the surgical procedure including hemostasis, tissue incision and retraction, instrument management, patient positioning, and wound closure. I attest to the content of the Intraoperative Record and any orders documented therein. Any exceptions are noted below.
--- NOTE | 2022-03-29 15:19 | Anesthesiology Progress Note ---
Date of Service March 29, 2022 Anesthesia Post Procedure Vital Signs Vital Signs: Temp Pulse Pulse Resp BP Pulse Ox O2 Del Method 03/29/22 15:05 36.3 C L 87 20 124/73 96 Room Air 03/29/22 14:55 90 15 123/73 96 Oxymask 03/29/22 14:45 95 H 20 133/84 98 Oxymask 03/29/22 14:35 95 H 21 120/70 94 Oxymask 03/29/22 14:26 36.2 C L 97 H 19 139/74 94 Oxymask 03/29/22 09:31 36.8 C 70 20 123/73 96 Room Air O2 Flow Rate 03/29/22 15:05 2 03/29/22 14:55 2 03/29/22 14:45 11 03/29/22 14:35 11 03/29/22 14:26 11 03/29/22 09:31 Transfer of Care Handoff Completed per policy Notes Mental Status: alert / awake / arousable Patient Amnestic to Procedure: Yes Nausea / Vomiting: adequately controlled Pain: adequately controlled Airway Patency, RR, SpO2: stable & adequate BP & HR: stable & adequate Hydration State: stable & adequate Anesthetic Complications: no major complications apparent
[2022-03-29] MEDS ORDERED: SODIUM CHLORIDE 0.9% 1000ML 1,000 ML IV SCH (15:45)
[2022-03-29] MEDS ORDERED: NALOXONE HCL 0.4 MG/1 ML VIAL/CARP IV PRN (15:45)
[2022-03-29] MEDS ORDERED: PHARMACY GLYCEMIC MGMT CONSULT PRN (15:45)
[2022-03-29] MEDS ORDERED: METOCLOPRAMIDE HCL INJ 5 MG/ML 2 ML VIAL IV PRN (15:45)
[2022-03-29] MEDS ORDERED: bisacodyL 10 MG SUPP PR PRN (15:45)
[2022-03-29] MEDS ORDERED: ONDANSETRON INJ 2 MG/ML 2 ML VIAL IV PRN (15:45)
[2022-03-29] MEDS ORDERED: oxyCODONE HCL IR 5 MG TAB (IMMEDIATE RELEASE) PO PRN (15:45)
[2022-03-29] MEDS ORDERED: MAGNESIUM HYDROXIDE SUSP 30 ML UDC PO PRN (15:45)
[2022-03-29] MEDS ORDERED: GLUCOSE 10 TAB/TUBE PO PRN (16:30)
[2022-03-29] MEDS ORDERED: GLUCOSE 40% GEL 15 GM TUBE PO PRN (16:30)
[2022-03-29] MEDS ORDERED: DEXTROSE 50% 50 ML SYRINGE IV PRN (16:30)
[2022-03-29] MEDS ORDERED: CARBOHYDRATES FOR HYPOGLYCEMIA PO PRN (16:30)
[2022-03-29] MEDS ORDERED: GLUCAGON FOR INJ 1 MG VIAL IM PRN (16:30)
--- NOTE | 2022-03-29 18:06 | Hospitalist Progress Note ---
Date of Service March 29, 2022 Assessment & Plan (1) Right rotator cuff tear arthropathy: Plan: Per orthopedicspostop. Pain currently controlled. (2) Type 2 diabetes mellitus: Plan: A1c 7.5. Fingersticks, follow, supplemental insulin if needed. Pharmacy consulted for glycemic control (3) Dyslipidemia: Plan: Home meds. (4) Arteriosclerosis of coronary artery: Plan: Clinically appears stable, home meds. (5) DVT prophylaxis: Plan: Per orthopedicsSCDs. Plan Medically appears stable, given that pharmacy is consulted for glycemic management, it does not appear that active hospitalist management would be of benefit at this time. Therefore, we will sign off, certainly available for any help should the need arise. Admission and Anticipated Discharge Date Admission Date: March 29, 2022 Subjective Feeling okay. No significant pain. No other complaints. Review of Systems Review of Systems: All systems reviewed & are unremarkable except as noted in HPI & below Physical Exam Physical Exam: In general she is awake and alert pleasant no distress. HEENT normocephalic atraumatic mucous membranes moist. Right arm iced and in a sling. Breathing unlabored no accessory muscle use good effort. Skin shows no rashes no pallor or icterus. Neuro without focal deficits. Results & Data Results & Data ([facility]) Vital Signs (Past 12 Hours) Vital Signs Temp Pulse Pulse Resp BP Pulse Ox O2 Del Method 03/29/22 17:33 Room Air 03/29/22 16:45 80 20 114/72 97 Room Air 03/29/22 16:15 80 20 101/65 94 Room Air 03/29/22 15:45 97.5 F L 85 16 108/71 95 Room Air 03/29/22 15:30 82 18 118/73 97 Room Air 03/29/22 15:15 84 20 121/70 96 Room Air 03/29/22 15:05 97.3 F L 87 20 124/73 96 Room Air 03/29/22 14:55 90 15 123/73 96 Oxymask 03/29/22 14:45 95 H 20 133/84 98 Oxymask 03/29/22 14:35 95 H 21 120/70 94 Oxymask 03/29/22 14:26 97.2 F L 97 H 19 139/74 94 Oxymask 03/29/22 09:31 98.2 F 70 20 123/73 96 Room Air O2 Flow Rate 03/29/22 17:33 03/29/22 16:45 03/29/22 16:15 03/29/22 15:45 03/29/22 15:30 2 03/29/22 15:15 2 03/29/22 15:05 2 03/29/22 14:55 2 03/29/22 14:45 11 03/29/22 14:35 11 03/29/22 14:26 11 03/29/22 09:31 PG Care Time/CCT Total # of Minutes Spent Total Time Spent with Patient: Total time spent is greater than 50% in coordination of care (as documented) at patient's floor/unit and/or counseling patient: Coding Level of Care Code 24007 Subseq Hosp Care Lvl 2 Diagnoses Right rotator cuff tear arthropathy M75.101; M12.811 Type 2 diabetes mellitus E11.9 Dyslipidemia E78.5 Arteriosclerosis of coronary artery I25.10 DVT prophylaxis Z29.9
[2022-03-29] MEDS: IBUPROFEN 600 MG TAB PO SCH (18:42)
[2022-03-29] MEDS: INSULIN ASPART PER UNIT SC SCH ×2 (18:48→21:00)
[2022-03-29] MEDS: DOCUSATE SODIUM 100 MG CAP PO SCH (20:56)
[2022-03-29] MEDS: ceFAZolin 1000MG 1,000 MG/7.5 ML SYR IV SCH (20:56)
[2022-03-29] MEDS: ACETAMINOPHEN 500 MG TAB PO SCH (20:59)
[2022-03-29] MEDS ORDERED: SENNA 8.6 MG TAB PO SCH (21:00)
[2022-03-29] MEDS ORDERED: METOPROLOL SUCC 25MG EXT REL TAB PO SCH ×2 (21:00→22:00)
[2022-03-29] MEDS ORDERED: EZETIMIBE 10 MG TABLET PO SCH (21:00)
[2022-03-30] MEDS: IBUPROFEN 600 MG TAB PO SCH ×3 (00:05→12:07)
[2022-03-30] MEDS: ceFAZolin 1000MG 1,000 MG/7.5 ML SYR IV SCH (04:46)
[2022-03-30] MEDS: ACETAMINOPHEN 500 MG TAB PO SCH (06:26)
[2022-03-30] MEDS ORDERED: LEVOTHYROXINE SODIUM 75 MCG TABLET PO SCH (06:30)
[2022-03-30 08:06] LABS: Basophils # (auto) 0.13 K/uL (0-0.2); Basophils % (auto) 1.3 %; Eosinophils # (auto) 0.01 K/uL (0-0.50); Eosinophils % (auto) 0.1 %; Hematocrit (blood only) 35.1 % (34.1-44.9); Hemoglobin 10.9 g/dl (12.0-16.0); Immature Granulocytes # (auto) 0.04 K/uL (0.00-0.02); Immature Granulocytes % (auto) 0.4 %; Lymphocytes # (auto) 1.48 K/uL (1.2-3.4); Lymphocytes % (auto) 14.4 %; Mean Corpuscular Hemoglobin 29.1 pg (25.0-34.0); Mean Corpuscular Hgb Conc 31.1 g/dL (32.0-36.0); Mean Corpuscular Volume 93.9 fL (80.0-100.0); Mean Platelet Volume 10.2 fL (9.4-12.3); Monocytes # (auto) 0.97 K/uL (0.24-0.82); Monocytes % (auto) 9.4 %; Neutrophils # (auto) 7.65 K/uL (1.4-6.5); Neutrophils % (auto) 74.4 %; Platelet Count 223 K/uL (130-400); Red Blood Count 3.74 M/uL (3.93-5.22); White Blood Count 10.28 K/ul (4.8-10.8)
--- NOTE | 2022-03-30 08:31 | Orthopedic Progress Note ---
Date of Service March 30, 2022 Assessment & Plan (1) Status post reverse total replacement of right shoulder: Plan: 66 yo female stable POD #1 s/p right reverse TSA 1. Med management 2. DVT prophylaxis- ASA, SCDs 3. PT/OT 4. D/C planning- home w/ OPPT Admission and Anticipated Discharge Date Admission Date: March 29, 2022 Subjective Pt resting in bed, denies complaints, pain controlled Physical Exam Physical Exam: Silverlon dressing in place, fingers mobile, NVI Results & Data ([facility]) Vital Signs (Past 12 Hours) Vital Signs Temp Pulse Pulse Resp BP Pulse Ox O2 Del Method 03/30/22 07:43 36.9 C 65 18 99/74 L 99 03/30/22 01:40 36.4 C L 76 18 107/69 93 Room Air 03/29/22 20:55 36.4 C L 83 18 124/75 98 Room Air Laboratory Results 03/30/22 03/30/22 03/30/22 Range/Units 07:57 07:41 07:41 WBC 10.28 (4.8-10.8) K/ul RBC 3.74 L (3.93-5.22) M/uL Hgb 10.9 L (12.0-16.0) g/dl Hct 35.1 (34.1-44.9) % MCV 93.9 (80.0-100.0) fL MCH 29.1 (25.0-34.0) pg MCHC 31.1 L (32.0-36.0) g/dL RDW Std Deviation 48.0 H (36.4-46.3) fL RDW Coeff of Elian 14.0 (11.5-14.5) % Plt Count 223 (130-400) K/uL MPV 10.2 (9.4-12.3) fL Immature Gran % (Auto) 0.4 % Neut % (Auto) 74.4 % Lymph % (Auto) 14.4 % [place] % (Auto) 9.4 % Eos % (Auto) 0.1 % Baso % (Auto) 1.3 % Neut # (Auto) 7.65 H (1.4-6.5) K/uL Lymph # (Auto) 1.48 (1.2-3.4) K/uL [place] # (Auto) 0.97 H (0.24-0.82) K/uL Eos # (Auto) 0.01 (0-0.50) K/uL Baso # (Auto) 0.13 (0-0.2) K/uL Immature Gran # (Auto) 0.04 H (0.00-0.02) K/uL Sodium Pending Potassium Pending Chloride Pending Carbon Dioxide Pending Anion Gap Pending BUN Pending Creatinine Pending Est Cr Clr Drug Dosing Pending Est GFR ( Amer) Pending Est GFR (Non-Af Amer) Pending BUN/Creatinine Ratio Pending Glucose Pending POC Glucose 107 H (70-99) mg/dl Calcium Pending SARS-CoV-2, RNA, NAAT (NEGATIVE) 03/29/22 03/29/22 03/29/22 Range/Units 20:54 16:55 14:31 WBC (4.8-10.8) K/ul RBC (3.93-5.22) M/uL Hgb (12.0-16.0) g/dl Hct (34.1-44.9) % MCV (80.0-100.0) fL MCH (25.0-34.0) pg MCHC (32.0-36.0) g/dL RDW Std Deviation (36.4-46.3) fL RDW Coeff of Elian (11.5-14.5) % Plt Count (130-400) K/uL MPV (9.4-12.3) fL Immature Gran % (Auto) % Neut % (Auto) % Lymph % (Auto) % [place] % (Auto) % Eos % (Auto) % Baso % (Auto) % Neut # (Auto) (1.4-6.5) K/uL Lymph # (Auto) (1.2-3.4) K/uL [place] # (Auto) (0.24-0.82) K/uL Eos # (Auto) (0-0.50) K/uL Baso # (Auto) (0-0.2) K/uL Immature Gran # (Auto) (0.00-0.02) K/uL Sodium Potassium Chloride Carbon Dioxide Anion Gap BUN Creatinine Est Cr Clr Drug Dosing Est GFR ( Amer) Est GFR (Non-Af Amer) BUN/Creatinine Ratio Glucose POC Glucose 176 H 119 H 128 H (70-99) mg/dl Calcium SARS-CoV-2, RNA, NAAT (NEGATIVE) 03/29/22 Range/Units 09:24 WBC (4.8-10.8) K/ul RBC (3.93-5.22) M/uL Hgb (12.0-16.0) g/dl Hct (34.1-44.9) % MCV (80.0-100.0) fL MCH (25.0-34.0) pg MCHC (32.0-36.0) g/dL RDW Std Deviation (36.4-46.3) fL RDW Coeff of Elian (11.5-14.5) % Plt Count (130-400) K/uL MPV (9.4-12.3) fL Immature Gran % (Auto) % Neut % (Auto) % Lymph % (Auto) % [place] % (Auto) % Eos % (Auto) % Baso % (Auto) % Neut # (Auto) (1.4-6.5) K/uL Lymph # (Auto) (1.2-3.4) K/uL [place] # (Auto) (0.24-0.82) K/uL Eos # (Auto) (0-0.50) K/uL Baso # (Auto) (0-0.2) K/uL Immature Gran # (Auto) (0.00-0.02) K/uL Sodium Potassium Chloride Carbon Dioxide Anion Gap BUN Creatinine Est Cr Clr Drug Dosing Est GFR ( Amer) Est GFR (Non-Af Amer) BUN/Creatinine Ratio Glucose POC Glucose (70-99) mg/dl Calcium SARS-CoV-2, RNA, NAAT NEGATIVE (NEGATIVE)
[2022-03-30 08:35] LABS: BUN Creatinine Ratio 18.4 (10-20); Calcium 7.7 mg/dl (8.5-10.1); Creatinine Clr Calc Pharmacy 39.2 ml/min; Est GFR (African American) 51.2 ml/min; Est GFR (Non-African American) 44.2 ml/min; Potassium 3.8 mmol/L (3.5-5.1)
[2022-03-30] MEDS: INSULIN ASPART PER UNIT SC SCH (08:42)
[2022-03-30] MEDS: DOCUSATE SODIUM 100 MG CAP PO SCH (08:45)
[2022-03-30] MEDS ORDERED: ASPIRIN 325 MG ECTAB PO SCH (09:00)
[2022-03-30] MEDS ORDERED: PANTOprazole 40 MG TAB PO SCH (09:00)
[2022-03-30] MEDS ORDERED: NON-FORMULARY MEDICATION (Canagliflozin [Invokana] 100 mg tablet) PO SCH (09:00)
[2022-03-30] MEDS ORDERED: NITROGLYCERIN 0.2 MG/HR PATCH TD SCH (09:00)
[2022-03-30] MEDS ORDERED: FLUTICASONE FUROATE 200MCG 14 PUFFS/INHALER INH SCH (09:00)
[2022-03-30] MEDS ORDERED: MULTIVITAMIN TAB PO SCH (09:00)
[2022-03-30] MEDS ORDERED: ROSUVASTATIN CALCIUM 20 MG TAB PO SCH (09:00)
--- NOTE | 2022-03-30 11:06 | XRay Report ---
XR shoulder RT min 2V routine CLINICAL HISTORY: Post shoulder surgery TECHNIQUE: 3 views of the right shoulder were obtained. Comparison: Comparison is made to MRI right shoulder 02/09/2021 FINDINGS: Patient is status post shoulder arthroplasty with expected postsurgical changes including soft tissue swelling and subcutaneous emphysema. No periarticular lucency or hardware fracture is seen. IMPRESSION: Expected postoperative appearance status post placement of shoulder arthroplasty. ACT 112: Negative or not required by law. Electronically signed by: Bryn Elaine M.D. 03/30/2022 11:05 AM
--- NOTE | 2022-03-30 14:01 | Discharge Summary ---
Date of Service March 30, 2022 Admission HPI Per Admitting Provider Ms. Goldman is a 66-year old female referred over from Dr. Chávez for further evaluation of right shoulder pain and weakness. She previously had right shoulder rotator cuff repair in March 2021. Previous operative report was reviewed. She underwent a right shoulder arthroscopy with rotator cuff repair, debridement of labral tear, subacromial decompression, and distal clavicle excision on 03/28/21. After that surgery, she reports that she did fairly well until around August 2021. She was able to abduct her shoulder overhead, and can still do this, but it started getting very painful to reach out to the side around August, with progressive worsening since then. The pain is now waking her up at night. She last had a subacromial steroid injection in October 2021, and reports very minimal relief of her pain with that injection, only about a week. Of note, she does have a history of coronary artery disease with a triple bypass in 2014. No myocardial infarction since then. She is on aspirin 81 mg daily for this. Principal Diagnosis Right shoulder rotator cuff tear arthropathy Discharge Data Allergies Allergy/AdvReac Type Severity Reaction Status Date / Time adhesive Allergy Mild HIVES Verified 03/29/22 09:37 rofecoxib Allergy Mild RASH,NAUSEA Verified 03/29/22 09:37 AND VOMITING,CHEST PAIN Consultations 03/26/22 17:17 Consult Hospitalist Routine Procedures Performed Operation Date: 03/29/22 12:00 Actual Procedures p Right Total Shoulder Arthroplasty Reverse - Rudy Varela M.D. Ordered Studies 03/29/22 05:00 US - OR guided needle placemen Routine Hospital Course (1) Right rotator cuff tear arthropathy: Patient underwent a right reverse total shoulder arthroplasty on the date of admission. Patient tolerated the procedure well and was transferred up to the general orthopedic surgery floor in stable condition. Perioperative antibiotic coverage was initiated, and continued for 24 hours postoperatively. DVT prophylaxis was initiated consisting of SCDs and aspirin 325 mg daily. Perioperative pain control regimen was transitioned to strictly oral pain medications by postoperative day 1. On postoperative day 1 the patient was doing very well. Pain was well controlled, and patient was mobilizing well with therapy. Patient was determined be safe and ready for discharge to home. Total Time Total Time Spent Total Time Spent (In Minutes): 15 Discharge Plan Discharge Items Patient Disposition: Home - Self-Care Reason For Visit: Right Shoulder Rotator Cuff Arthropathy Discharge Diagnosis: Right shoulder rotator cuff tear arthropathy Activity: Per Instructions section Non-emergency contact: Surgeon Call non-emergency contact if: your pain is not controlled, your temperature is above 101.5, your wound has increased redness and your wound has increased drainage Follow-up/Referrals: Bess Thornton MD [Primary Care Provider] - Rudy Varela M.D. [Physician] - Diet: Carb Consistent or DM2 Addtl Attending Provider Instructions: Things to Watch Out For -Go to the Emergency Room if you have sudden onset of nausea, vomiting, chest pain, shortness of breath, or uncontrollable pain. -Call the clinic or go to the Emergency Room if you have a sudden increase in the amount of wound drainage or the drainage becomes thick, yellow or green, or foul-smelling. -For routine questions, call the clinic at [phone] during regular business hours (8am-5pm). For urgent issues after regular business hours, you may call the clinic to be connected to the on-call physician. Dressings -A special waterproof, silver-impregnated dressing was placed on your shoulder. Keep this dressing in place for 1 week after surgery. You may shower with the waterproof dressing in place, but do not soak the dressing in the bathtub or pool. -One week after surgery, you may remove the waterproof dressing. You may continue to shower, and let water run BRIEFLY over the incision, but do not soak the incision in the bathtub or pool for 2 weeks. You may also gently clean the incision with mild soap and water; pat the incision dry after cleaning-do not rub the incision. Apply a new dressing daily thereafter. Shoulder Exercises -Keep your operative shoulder in the sling for comfort, except as detailed below. -You should come out of the sling 4-5 times a day for passive pendulum exercises: lean over and swing your arm in a circular pattern. -You should also do active-assisted forward flexion exercises: use your opposite hand to lift your operative arm forward to 90 degrees. -Do not flex your elbow (curl motion) or supinate your forearm (rotating palm up) against resistance. -Do not use your arm to push yourself up out of bed or up from a seated position. Ice Pack -You may use an ice pack for pain relief. You should use it 20-30 minutes at a time. Place a towel between the ice pack and your skin to prevent frostbite. -You should use the ice pack fairly regularly for the first 1-2 weeks after surgery to help reduce pain and inflammation. -About 2 weeks after your surgery, you should start using heat to loosen up your shoulder prior to doing your stretching exercises, then use the cooling sleeve after your exercises are complete to reduce swelling and pain. Pain Medicines -Your prescriptions for pain medications have already been sent to the pharmacy on file at [facility]. -You have been prescribed an anti-inflammatory (Motrin/ibuprofen) and a non- narcotic pain medicine (Tylenol/acetaminophen). These are your primary pain medications. Take them each every 6 hours as instructed. It is recommended that you stagger these medicines every 3 hours (i.e. take ibuprofen at 8:00 am, then acetaminophen at 11:00 am, then ibuprofen at 2:00 pm, etc) -DO NOT take any additional anti-inflammatories (Advil, Aleve/naproxen, Mobic/meloxicam, Celebrex) or any additional Tylenol/acetaminophen products with these prescribed medications. -You have also been prescribed an additional narcotic pain medication (oxycodone). Take this medicine ONLY for breakthrough pain not controlled by the ibuprofen and acetaminophen. -Do not drive or operate heavy machinery while taking the narcotic medication. -Common side effects of narcotic pain medicines include itching, nausea, constipation, and feeling "loopy". However, if you develop a rash or hives, stop taking the medicine and call the clinic. If you develop swelling in your throat or difficulty breathing, go to the Emergency Room or call 911 IMMEDIATELY. -You may take over the counter stool softeners if needed for constipation. Aspirin -Take a full strength (325mg) aspirin every day for 4 weeks (28 days) to prevent blood clots. -If you were taking a baby aspirin (81mg) prior to surgery, you may resume taking this 81mg dose after you complete the 28-day course of the 325mg strength dose; do not take the 325mg dose in addition to your 81mg dose. -Be aware that you will bruise easier while taking Aspirin; this is normal. However, if you develop a significantly large area of swelling after an injury, or have a cut that will not stop bleeding, call the clinic or go to the Emergency Room immediately. Pending Studies at Discharge: No Stand-Alone Forms: My [facility] Medications and DC Order Prescriptions: Continued Flovent HFA 220 mcg/actuation HFA aerosol inhaler 2 puff INH BID Qty: 12 3RF Rx Instructions: INHALE 2 PUFFS TWICE DAILY. RINSE MOUTH AFTER USE. Invokana 100 mg tablet 100 mg PO QAM Qty: 30 5RF levothyroxine 75 mcg tablet See Rx Instructions .ROUTE .COMPLEX Qty: 30 5RF Dose Instruction: take 1 tablet by mouth in the morning Rx Instructions: take 1 tablet by mouth in the morning omeprazole 40 mg capsule,delayed release(DR/EC) 40 mg PO QAM Qty: 30 5RF rosuvastatin 40 mg tablet 40 mg PO DAILY Qty: 30 11RF nitroglycerin 0.2 mg/hr Patch 24 Hour 1 patch TRANSDERMAL DAILY Rx Instructions: PUTS ON DAILY AT NOON REMOVES BEFORE BED AROUND 11 PM metoprolol succinate 25 mg Tablet Extended Release 24 Hr 25 mg PO QPM ezetimibe [Zetia] 10 mg tablet 10 mg PO QPM Discontinued diclofenac sodium 1 % gel 2 g topical QID PRN (Reason: Pain) Rx Instructions: apply to single elbow, wrist or hand; for hand includes palm/fingers/back of hand aspirin 81 mg Tablet 162 mg PO QAM Discharge Orders: Discharge Order (Routine); Ordered 03/30/22 Ordered By: Thien Owens Admission Data Admit Date/Time: 03/29/22 14:25 Attending Provider: Rudy Varela Admit Provider: Rudy Varela Primary Care Provider: Bess Thornton Other Providers: Jem[facility] Other Interventions: Discharge Summary Assessment (RN) Last Done: 03/30/22 12:13
== END 2022-03-30 12:54 | disposition home health service (06) | DRG 483 ==
LOC: ASU 09:09 → 3E 14:25